=== PATIENT | female | born 1930 | race Caucasian/White ===

== ENCOUNTER 2018-11-22 15:33 | Inpatient (IN) ==
[2018-11-22] MEDS ORDERED: Ondansetron 4 MG/2 ML VIAL IVP ONE (15:54)
--- NOTE | 2018-11-22 16:03 | Emergency Department Note ---
Disposition Clinical Impression: Hydronephrosis, right Chronic kidney disease Qualifiers: Chronic kidney disease stage: stage 3 (moderate) Qualified Code(s): N18.3 - Ch ronic kidney disease, stage 3 (moderate) Abdominal pain Qualifiers: Abdominal location: right upper quadrant Qualified Code(s): R10.11 - Right upper quadrant pain UTI (urinary tract infection) Qualifiers: Urinary tract infection type: acute cystitis Hematuria presence: with hematuria Qualified Code(s): N30.01 - Acute cystitis with hematuria Disposition: Admitted As Inpatient Condition: Good Time of Disposition: 17:42 General Adult HPI - General Chief complaint: ED Abdominal Pain Stated complaint: N/V Abd Pain Time Seen by Provider: 11/22/18 15:37 Source: patient Limitations: no limitations Nursing Notes Reviewed: Yes Vital Signs Reviewed: Yes - History of Present Illness HPI Narrative: Female patient presenting to emergency department complaining of nausea and vomiting for the past 30 days. States it is worse at night. She did have a stent placed by Dr. Kannan silverman at this facility on Sunday. She came today to see urology for a follow-up and was sent here secondary to her nausea vomiting. Patient has a history of chronic kidney disease stage III. She was found to have hydronephrosis with no stone noted. They are unsure why she did have hydronephrosis. I did speak with Dr. Case who is the physician is [facility] office today. He had no specific concerns about the stent at this time but was concerned about the patient because she stated that she could not keep anything down at home. Patient reports that she has been having abdominal pain as well for the past 3 days. She denies any fevers. She denies any hematemesis or bilious emesis. She denies any shortness of breath or chest pain. Pain Scale: 7 - Related Data Home Medications Medication Instructions Recorded Confirmed Allopurinol [Zyloprim 100 MG] 100 mg PO DAILY 11/15/18 11/18/18 Aspirin [Adult Aspirin] 81 mg PO DAILY 11/15/18 11/18/18 Atorvastatin [Lipitor] 40 mg PO QPM 11/15/18 11/18/18 Carvedilol 12.5 mg PO BID 11/15/18 11/18/18 Cholecalciferol (Vitamin D3) 2,000 units PO DAILY 11/15/18 11/18/18 [Vitamin D3] Clopidogrel Bisulfate [Plavix] 75 mg PO DAILY 11/15/18 11/18/18 Duloxetine HCl [Cymbalta] 60 mg PO DAILY 11/15/18 11/18/18 Isosorbide MONOnitrate [Isosorbide 30 mg PO DAILY 11/15/18 11/18/18 Mononitrate ER] Meclizine HCl [Verticalm] 25 mg PO TID PRN 11/15/18 11/18/18 Oxybutynin [Ditropan] 5 mg PO BID 11/15/18 11/18/18 Pantoprazole Sodium [Protonix] 40 mg PO DAILY 11/15/18 11/18/18 Magnesium Oxide [Magnesium] 400 mg PO BID 11/18/18 11/18/18 Oxybutynin [Ditropan] 5 mg PO BID 11/22/18 11/22/18 Allergies Allergy/AdvReac Type Severity Reaction Status Date / Time baclofen Allergy Hives Verified 11/15/18 23:26 ciprofloxacin [From Cipro] Allergy Hives Verified 11/15/18 23:26 clindamycin Allergy Hives Verified 11/15/18 23:26 morphine Allergy Hives Verified 11/15/18 23:26 Penicillins [PCN] Allergy Hives Verified 11/15/18 23:26 Sulfa (Sulfonamide Allergy Hives Verified 11/15/18 23:26 Antibiotics) topiramate [From Topamax] Allergy Hives Verified 11/15/18 23:26 All systems ED: reviewed and negative except as stated. Review of Systems: As Per HPI Constitutional: Denies: fever Cardiovascular: Denies: chest pain Respiratory: Denies: cough, dyspnea Gastrointestinal: Reports: abdominal pain, nausea, vomiting. Denies: diarrhea, constipation, hematemesis, melena, hematochezia Genitourinary: Reports: hematuria. Denies: urgency, dysuria, frequency Musculoskeletal: Denies: back pain, neck pain Neurological: Reports: weakness. Denies: headache Past Medical History - Past Medical History Attestation: Yes The following information was validated with the patient. Source: patient Medical history: Reports: aortic aneurysm, arthritis, asthma, cancer, CHF, coronary artery disease, GERD, hyperlipidemia, hypertension, kidney stones, renal disease Surgical history: Reports: breast surgery, cancer surgery Psychiatric history: Reports: anxiety, depression - Social History Smoking Status: Never smoker Smokeless Tobacco Status: No Alcohol use: Reports: none Drug use: Reports: none Physical Exam - General Limitations: no limitations General appearance: alert, in distress (Holding a vomit bag.) - Head Head exam: atraumatic, normocephalic, normal inspection - Eye Eye exam: Present: normal appearance, PERRL, EOMI - ENT ENT exam: normal exam, normal oropharynx, mucous membranes moist - Neck Neck exam: Present: normal inspection, full ROM, trachea midline - Chest Chest inspection: Present: normal inspection, symmetric chest wall rise - Respiratory Respiratory exam: Present: normal lung sounds bilaterally. Absent: respiratory distress, accessory muscle use - Cardiovascular Cardiovascular exam: Present: regular rate, normal rhythm, normal heart sounds - Abdominal Exam Abdominal exam: Present: soft, tenderness (Right upper quadrant and epigastric region.), Pedro's sign. Absent: distention, guarding, rebound, rigidity, Rovsing's sign, tenderness at McBurney's Point - Extremities Exam Extremities exam: Present: normal inspection, full ROM, normal capillary refill. Absent: tenderness, pedal edema, calf tenderness - Neurological Exam Neurological exam: Present: alert, oriented X3 - Psychiatric Psychiatric exam: Present: normal affect, normal mood - Skin Skin exam: Present: warm, dry, intact, normal color. Absent: rash, cyanosis, diaphoresis Course Course Narrative: Female patient appears that she is not feeling well. Holding a vomit bag. Does have right upper quadrant tenderness on exam. Positive Pedro sign. Did have a recent stent placed for hydronephrosis with no overt reason for this. History of CKD. Patient is concerned that she has not been able to eat or drink since 3 days ago. We will get a basic lab workup on patient inclusive of a UA. She does report that she has been having some hematuria Tria but thinks this is secondary to her stent placed. She does report nausea vomiting is worse at night. We will provide patient with anti-medics as well as get basic lab workup and a CT of patient's abdomen. - Reevaluation(s) Reevaluation #1: Patient does have a urinary tract infection. We will go ahead and treat this at this time. She is not tachycardic and not febrile. I do not believe that the patient is currently septic. We will continue to treat her nausea and vomiting and have her admitted to the hospital. I did discuss this with the hospitalist. Ultrasound of her right upper quadrant is pending at this time. Time: 18:12 Vital Signs Temperature 98.4 F 11/22/18 15:36 Pulse Rate 87 11/22/18 15:36 Respiratory Rate 16 11/22/18 15:36 Blood Pressure 143/90 11/22/18 15:36 O2 Sat by Pulse Oximetry 97 11/22/18 15:36 Temperature 98.4 F 11/22/18 15:36 Pulse Rate 87 11/22/18 17:22 Respiratory Rate 14 11/22/18 17:22 Blood Pressure 195/73 11/22/18 17:22 O2 Sat by Pulse Oximetry 99 11/22/18 17:22 Oxygen Delivery Oxygen Delivery Room Air Medical Decision Making - Medical Records Medical records reviewed: Yes I reviewed the patient's medical records. - Lab Data Lab results reviewed: Yes I reviewed the patient's lab results. Result diagrams: 11/22/18 17:08 11/22/18 17:08 Lab Results 11/22/18 11/22/18 11/22/18 Range/Units 16:10 17:08 17:08 WBC 8.4 (4.3-11.1) K/mcL RBC 4.25 (3.82-4.97) M/mcL Hgb 12.0 (11.5-15.4) g/dL Hct 38.1 (35.3-44.9) % MCV 89.6 (83.0-100.0) fL MCH 28.2 (28.0-33.3) pg MCHC 31.5 L (31.6-35.5) g/dL RDW 17.1 H (11.5-14.5) % Plt Count 220 (140-400) K/mcL MPV 10.4 (9.4-12.4) fL Immature Gran % 0.4 (0-4) % Seg Neutrophils % 63.1 % Lymphocytes % 22.7 % Monocytes % 9.7 % Eosinophils % 3.5 % Basophils % 0.6 % Neutrophils # 5.3 (1.6-8.9) K/mcL Lymphocytes # 1.9 (0.6-4.6) K/mcL Monocytes # 0.8 (0.0-1.3) K/mcL Eosinophils # 0.3 (0.0-0.6) K/mcL Basophils # 0.1 (0.0-0.2) K/mcL Sodium 139 (136-145) mEq/L Potassium 4.0 (3.5-5.1) mEq/L Chloride 98 (98-107) mEq/L Carbon Dioxide 31 H (23-29) mEq/L BUN 22 (8-23) mg/dL Creatinine 1.64 H (0.60-1.20) mg/dL Est GFR ( Amer) 36 L (> 60) Est GFR (Non-Af Amer) 30 L (> 60) BUN/Creatinine Ratio 13 (6-26) Glucose 94 (70-105) mg/dL Calculated Osmolality 291 (280-300) Calcium 9.7 (8.6-10.3) mg/dL Total Bilirubin 0.7 (0.3-1.0) mg/dL Direct Bilirubin 0.2 (0.0-0.2) mg/dL Indirect Bilirubin 0.5 (0.0-1.2) mg/dL AST 16 (13-39) Units/L ALT 9 (7-52) Units/L Alkaline Phosphatase 99 (34-104) Units/L Serum Total Protein 7.0 (6.4-8.9) g/dL Albumin 4.1 (3.5-5.7) g/dL Globulin 2.9 (2.4-3.5) g/dL Albumin/Globulin Ratio 1.4 (1.1-2.2) Lipase 85 H (11-82) Units/L Ur Specimen Adequacy See below A Urine Color Brown (Yellow) Urine Clarity Cloudy A (Clear) Urine pH 5.5 (5.0-8.0) pH Units Ur Specific [place] 1.019 (1.010-1.025) Urine Protein >=300 H (Neg-Trace) mg/dL Urine Glucose (UA) Normal (Normal) mg/dL Urine Ketones 15 H (Negative) mg/dL Urine Blood Large H (Negative) Urine Nitrite Negative (Negative) Urine Bilirubin Moderate H (Negative) Urine Urobilinogen Normal (Normal) mg/dL Ur Leukocyte Esterase Moderate H (Negative) Ur Culture Indicated? YES A (NO) Specimen Rejected 11/22/18 Range/Units 17:50 WBC (4.3-11.1) K/mcL RBC (3.82-4.97) M/mcL Hgb (11.5-15.4) g/dL Hct (35.3-44.9) % MCV (83.0-100.0) fL MCH (28.0-33.3) pg MCHC (31.6-35.5) g/dL RDW (11.5-14.5) % Plt Count (140-400) K/mcL MPV (9.4-12.4) fL Immature Gran % (0-4) % Seg Neutrophils % % Lymphocytes % % Monocytes % % Eosinophils % % Basophils % % Neutrophils # (1.6-8.9) K/mcL Lymphocytes # (0.6-4.6) K/mcL Monocytes # (0.0-1.3) K/mcL Eosinophils # (0.0-0.6) K/mcL Basophils # (0.0-0.2) K/mcL Sodium (136-145) mEq/L Potassium (3.5-5.1) mEq/L Chloride (98-107) mEq/L Carbon Dioxide (23-29) mEq/L BUN (8-23) mg/dL Creatinine (0.60-1.20) mg/dL Est GFR ( Amer) (> 60) Est GFR (Non-Af Amer) (> 60) BUN/Creatinine Ratio (6-26) Glucose (70-105) mg/dL Calculated Osmolality (280-300) Calcium (8.6-10.3) mg/dL Total Bilirubin (0.3-1.0) mg/dL Direct Bilirubin (0.0-0.2) mg/dL Indirect Bilirubin (0.0-1.2) mg/dL AST (13-39) Units/L ALT (7-52) Units/L Alkaline Phosphatase (34-104) Units/L Serum Total Protein (6.4-8.9) g/dL Albumin (3.5-5.7) g/dL Globulin (2.4-3.5) g/dL Albumin/Globulin Ratio (1.1-2.2) Lipase (11-82) Units/L Ur Specimen Adequacy Urine Color (Yellow) Urine Clarity (Clear) Urine pH (5.0-8.0) pH Units Ur Specific [place] (1.010-1.025) Urine Protein (Neg-Trace) mg/dL Urine Glucose (UA) (Normal) mg/dL Urine Ketones (Negative) mg/dL Urine Blood (Negative) Urine Nitrite (Negative) Urine Bilirubin (Negative) Urine Urobilinogen (Normal) mg/dL Ur Leukocyte Esterase (Negative) Ur Culture Indicated? (NO) Specimen Rejected Hemolyzed - Radiology Data Radiology results reviewed: Yes I reviewed the patient's radiology results. Abdomen/Pelvis CT 11/22/18 15:55 IMPRESSION: 1. Mild inflammatory changes about the right kidney may be reactive or related to nephritis. Correlate with urinalysis. 2. Double-J right ureter stent appears unremarkable in position. 3. Mild right pelvicaliectasis. 4. Nonobstructing calculus left kidney. 5. Calcific atherosclerosis aorta. 6. Right pleural effusion may be reactive. 7. Moderate size hiatal hernia. 8. Probable hemorrhagic hyperdense lesion mid pole right kidney. D/ / Francois Smalls / Francois Smalls Interpreting Provider: Francois Smalls - EKG Data EKG #1 EKG attestation: Yes I reviewed and interpreted this EKG. EKG results narrative: Normal sinus rhythm at a rate 84. KS interval is 170. Your's duration is 93. QT is 383. QTC is 453. No signs of acute ischemia. Good R-wave progression. Does have some peaked T waves in lead V4. No signs of the review of your Brugada. No current previous EKG to compare to.
[2018-11-22] MEDS ORDERED: 0.9 % Sodium Chloride 500 ML IVC STA (16:47)
[2018-11-22 17:12] LABS: Bilirubin,Urine Moderate (Negative); Blood,Urine Large (Negative); Clarity,Urine Cloudy (Clear); Glucose,Urine (UA) Normal (Normal); Ketones,Urine 15 mg/dL (Negative); Leukocyte Esterase,Urine Moderate (Negative); Nitrite,Urine Negative (Negative); PH,Urine 5.5 pH Units (5.0-8.0); Protein,Urine >=300 mg/dL (Neg-Trace); Specific Gravity,Urine 1.019 (1.010-1.025); Urobilinogen,Urine Normal (Normal)
[2018-11-22 17:13] LABS: Color,Urine Brown (Yellow)
[2018-11-22] MEDS ORDERED: cefTRIAXone 1,000 MG in Water for inj. (sterile) 10 ML IVP ONE (17:29)
[2018-11-22 17:32] LABS: Basophils # 0.1 K/mcL (0.0-0.2); Basophils % 0.6 %; Eosinophils # 0.3 K/mcL (0.0-0.6); Eosinophils % 3.5 %; Hematocrit 38.1 % (35.3-44.9); Immature Granulocytes % 0.4 % (0-4); Lymphocytes # 1.9 K/mcL (0.6-4.6); Lymphocytes % 22.7 %; Mean Corpuscular HGB Conc 31.5 g/dL (31.6-35.5); Mean Corpuscular Hemoglobin 28.2 pg (28.0-33.3); Mean Corpuscular Volume 89.6 fL (83.0-100.0); Mean Platelet Volume 10.4 fL (9.4-12.4); Monocytes # 0.8 K/mcL (0.0-1.3); Monocytes % 9.7 %; Neutrophils # 5.3 K/mcL (1.6-8.9); Platelet Count 220 K/mcL (140-400); Red Blood Count 4.25 M/mcL (3.82-4.97); Red Cell Distribution Width 17.1 % (11.5-14.5); Segmented Neutrophils % 63.1 %; White Blood Count 8.4 K/mcL (4.3-11.1)
[2018-11-22 17:46] LABS: Albumin 4.1 g/dL (3.5-5.7); Albumin/Globulin Ratio 1.4 (1.1-2.2); Bilirubin,Direct 0.2 mg/dL (0.0-0.2); Bilirubin,Indirect 0.5 mg/dL (0.0-1.2); Bilirubin,Total 0.7 mg/dL (0.3-1.0); Calcium 9.7 mg/dL (8.6-10.3); Globulin 2.9 g/dL (2.4-3.5)
[2018-11-22] MEDS ORDERED: Naloxone 0.4 MG/ML INJ IVP PRN (17:55)
--- NOTE | 2018-11-22 18:25 | Emergency Department Note ---
Disposition Clinical Impression: Hydronephrosis, right Chronic kidney disease Qualifiers: Chronic kidney disease stage: stage 3 (moderate) Qualified Code(s): N18.3 - Ch ronic kidney disease, stage 3 (moderate) Abdominal pain Qualifiers: Abdominal location: right upper quadrant Qualified Code(s): R10.11 - Right upper quadrant pain UTI (urinary tract infection) Qualifiers: Urinary tract infection type: acute cystitis Hematuria presence: with hematuria Qualified Code(s): N30.01 - Acute cystitis with hematuria Disposition: Admitted As Inpatient Condition: Good Time of Disposition: 18:25 General Adult HPI - General Chief complaint: ED Abdominal Pain Stated complaint: N/V Abd Pain Time Seen by Provider: 11/22/18 15:37 Source: patient Limitations: no limitations - History of Present Illness Pain Scale: 7 - Related Data Home Medications Medication Instructions Recorded Confirmed Allopurinol [Zyloprim 100 MG] 100 mg PO DAILY 11/15/18 11/22/18 Aspirin [Adult Aspirin] 81 mg PO DAILY 11/15/18 11/22/18 Atorvastatin [Lipitor] 40 mg PO QPM 11/15/18 11/22/18 Carvedilol 12.5 mg PO BID 11/15/18 11/22/18 Cholecalciferol (Vitamin D3) 2,000 units PO DAILY 11/15/18 11/22/18 [Vitamin D3] Clopidogrel Bisulfate [Plavix] 75 mg PO DAILY 11/15/18 11/22/18 Duloxetine HCl [Cymbalta] 60 mg PO DAILY 11/15/18 11/22/18 Isosorbide MONOnitrate [Isosorbide 30 mg PO DAILY 11/15/18 11/22/18 Mononitrate ER] Meclizine HCl [Verticalm] 25 mg PO TID PRN 11/15/18 11/22/18 Oxybutynin [Ditropan] 5 mg PO BID 11/15/18 11/22/18 Pantoprazole Sodium [Protonix] 40 mg PO DAILY 11/15/18 11/22/18 Magnesium Oxide [Magnesium] 400 mg PO BID 11/18/18 11/22/18 Oxybutynin [Ditropan] 5 mg PO BID 11/22/18 11/22/18 Allergies Allergy/AdvReac Type Severity Reaction Status Date / Time baclofen Allergy Hives Verified 06/14/19 23:26 ciprofloxacin [From Cipro] Allergy Hives Verified 11/15/18 23:26 clindamycin Allergy Hives Verified 11/15/18 23:26 morphine Allergy Hives Verified 11/15/18 23:26 Penicillins [PCN] Allergy Hives Verified 11/15/18 23:26 Sulfa (Sulfonamide Allergy Hives Verified 11/15/18 23:26 Antibiotics) topiramate [From Topamax] Allergy Hives Verified 11/15/18 23:26 Constitutional: Denies: fever Cardiovascular: Denies: chest pain Respiratory: Denies: cough, dyspnea Gastrointestinal: Reports: abdominal pain, nausea, vomiting. Denies: diarrhea, constipation, hematemesis, melena, hematochezia Genitourinary: Reports: hematuria. Denies: urgency, dysuria, frequency Musculoskeletal: Denies: back pain, neck pain Neurological: Reports: weakness. Denies: headache Past Medical History - Past Medical History Medical history: Reports: aortic aneurysm, arthritis, asthma, cancer, CHF, coronary artery disease, GERD, hyperlipidemia, hypertension, kidney stones, renal disease Surgical history: Reports: breast surgery, cancer surgery Psychiatric history: Reports: anxiety, depression - Social History Smoking Status: Never smoker Smokeless Tobacco Status: No Alcohol use: Reports: none Drug use: Reports: none Physical Exam - General Limitations: no limitations General appearance: alert, in distress (Holding a vomit bag.) Course Vital Signs Temperature 98.4 F 11/22/18 15:36 Pulse Rate 87 11/22/18 15:36 Respiratory Rate 16 11/22/18 15:36 Blood Pressure 143/90 11/22/18 15:36 O2 Sat by Pulse Oximetry 97 11/22/18 15:36 Temperature 98.4 F 11/22/18 15:36 Pulse Rate 87 11/22/18 17:22 Respiratory Rate 14 11/22/18 17:22 Blood Pressure 195/73 11/22/18 17:22 O2 Sat by Pulse Oximetry 99 11/22/18 17:22 Oxygen Delivery Oxygen Delivery Room Air Medical Decision Making - Lab Data Result diagrams: 11/22/18 17:08 11/22/18 17:08 Lab Results 11/22/18 11/22/18 11/22/18 Range/Units 16:10 17:08 17:08 WBC 8.4 (4.3-11.1) K/mcL RBC 4.25 (3.82-4.97) M/mcL Hgb 12.0 (11.5-15.4) g/dL Hct 38.1 (35.3-44.9) % MCV 89.6 (83.0-100.0) fL MCH 28.2 (28.0-33.3) pg MCHC 31.5 L (31.6-35.5) g/dL RDW 17.1 H (11.5-14.5) % Plt Count 220 (140-400) K/mcL MPV 10.4 (9.4-12.4) fL Immature Gran % 0.4 (0-4) % Seg Neutrophils % 63.1 % Lymphocytes % 22.7 % Monocytes % 9.7 % Eosinophils % 3.5 % Basophils % 0.6 % Neutrophils # 5.3 (1.6-8.9) K/mcL Lymphocytes # 1.9 (0.6-4.6) K/mcL Monocytes # 0.8 (0.0-1.3) K/mcL Eosinophils # 0.3 (0.0-0.6) K/mcL Basophils # 0.1 (0.0-0.2) K/mcL Sodium 139 (136-145) mEq/L Potassium 4.0 (3.5-5.1) mEq/L Chloride 98 (98-107) mEq/L Carbon Dioxide 31 H (23-29) mEq/L BUN 22 (8-23) mg/dL Creatinine 1.64 H (0.60-1.20) mg/dL Est GFR ( Amer) 36 L (> 60) Est GFR (Non-Af Amer) 30 L (> 60) BUN/Creatinine Ratio 13 (6-26) Glucose 94 (70-105) mg/dL Calculated Osmolality 291 (280-300) Calcium 9.7 (8.6-10.3) mg/dL Total Bilirubin 0.7 (0.3-1.0) mg/dL Direct Bilirubin 0.2 (0.0-0.2) mg/dL Indirect Bilirubin 0.5 (0.0-1.2) mg/dL AST 16 (13-39) Units/L ALT 9 (7-52) Units/L Alkaline Phosphatase 99 (34-104) Units/L Serum Total Protein 7.0 (6.4-8.9) g/dL Albumin 4.1 (3.5-5.7) g/dL Globulin 2.9 (2.4-3.5) g/dL Albumin/Globulin Ratio 1.4 (1.1-2.2) Lipase 85 H (11-82) Units/L Ur Specimen Adequacy See below A Urine Color Brown (Yellow) Urine Clarity Cloudy A (Clear) Urine pH 5.5 (5.0-8.0) pH Units Ur Specific [place] 1.019 (1.010-1.025) Urine Protein >=300 H (Neg-Trace) mg/dL Urine Glucose (UA) Normal (Normal) mg/dL Urine Ketones 15 H (Negative) mg/dL Urine Blood Large H (Negative) Urine Nitrite Negative (Negative) Urine Bilirubin Moderate H (Negative) Urine Urobilinogen Normal (Normal) mg/dL Ur Leukocyte Esterase Moderate H (Negative) Ur Culture Indicated? YES A (NO) Attestation Statement - Attestation Attestation: I reviewed the residents documentation and agree with the residents assessment and plan of care. I have personally had face to face time with the patient. (Brief History, Brief Exam, and MDM) I personally supervised and was present for the luciano/critical portions of the following procedures completed by the resident: EKG 87 year old female presents to the ED with complaints of abdominal pain and NVD in the epigastirc area and RUQ and otherwise most recenlty had urethral stents per urology for stones. from urology attempted to do direct admission from his office but was unsuccessful. Sylwia appears to have neprhitis and a hemmorhgaic kdiney cyst. Urology is othrewise aware and we will admit to [facility]. ROcephin started as her urine is infected
--- NOTE | 2018-11-22 18:32 | Internal Med History&Physical ---
Date of Encounter: 11/22/18 Time of Encounter: 18:00 Internal Medicine - H&P: HPI Chief complaint: Nausea and vomiting for 3 days and abdominal pain History of present illness: Ms. Dee is a 87 year old female with pmh of CKD stage 3, kidney stones s/p recent right sided ureteral stent placement, CAD presenting with complaints of nausea, vomiting abdominal pain that has been going on for about a week. Patient says she had nausea and vomiting prior to her stent placement but nothing to this severity. She says since sunday, she has had multiple episodes of nausea a nd vomiting and has been unable to keep anything down. She also complains of generalized abdominal pain, mor pronounced in the right upper quadrant. She denies any fevers, chills or diarrhea. She admits to some relief with tylenol at home. She was at her urology appointment today and noted to be nauseous and vomiting and was sent to the ER. In the ER, a CT abdomen was done showing mild inflammatory changes around the right kidney and a right ureter stent. She was started on fluids and ceftriaxone and is being admitted for further management Past Med Surg Social Fam HX - Past Medical History Medical history: aortic aneurysm, arthritis, asthma, cancer, CHF, coronary artery disease, GERD, hyperlipidemia, hypertension, kidney stones, renal disease Additional medical history: gout. lumbar stenosis Psychiatric history: anxiety, depression - Past Surgical History Surgical History: breast surgery, cancer surgery Additional surgical history: Stent 2018, BL knee replacement, Rectocele, - Social History Smoking Status: Never smoker Smokeless Tobacco Status: No Alcohol use: none Drug use: none - Family History Mother Living Status: Hx Family Cardiac Disorders: Yes (HTN) Father Living Status: Hx Family Cancer: Yes (Lung) - Additional Family History Additional family history: Family history reviewed and non contributory Internal Medicine - H&P: Meds Allopurinol [Zyloprim 100 MG] 100 mg PO DAILY 11/15/18 [History] Aspirin [Adult Aspirin] 81 mg PO DAILY 11/15/18 [History] Atorvastatin [Lipitor] 40 mg PO QPM 11/15/18 [History] Carvedilol 12.5 mg PO BID 11/15/18 [History] Cholecalciferol (Vitamin D3) [Vitamin D3] 2,000 units PO DAILY 11/15/18 [History] Clopidogrel Bisulfate [Plavix] 75 mg PO DAILY 11/15/18 [History] Duloxetine HCl [Cymbalta] 60 mg PO DAILY 11/15/18 [History] Isosorbide MONOnitrate [Isosorbide Mononitrate ER] 30 mg PO DAILY 11/15/18 [History] Meclizine HCl [Verticalm] 25 mg PO TID PRN 11/15/18 [History] Oxybutynin [Ditropan] 5 mg PO BID 11/15/18 [History] Pantoprazole Sodium [Protonix] 40 mg PO DAILY 11/15/18 [History] Magnesium Oxide [Magnesium] 400 mg PO BID 11/18/18 [History] Oxybutynin [Ditropan] 5 mg PO BID 11/22/18 [History] Allergy/AdvReac Type Severity Reaction Status Date / Time baclofen Allergy Hives Verified 11/15/18 23:26 ciprofloxacin [From Cipro] Allergy Hives Verified 11/15/18 23:26 clindamycin Allergy Hives Verified 11/15/18 23:26 morphine Allergy Hives Verified 11/15/18 23:26 Penicillins [PCN] Allergy Hives Verified 11/15/18 23:26 Sulfa (Sulfonamide Allergy Hives Verified 11/15/18 23:26 Antibiotics) topiramate [From Topamax] Allergy Hives Verified 11/15/18 23:26 All Systems PM: A 10-system review of systems was performed and is negative for pertinent findings except as documented above in the HPI. - Constitutional Constitutional: no chills, no fever(s), no night sweats - EENT Eyes: no change in vision, no discharge, no pain, no photophobia Ears: no ear discharge, no ear pain, no tinnitus Nose, mouth and throat: no dysphagia, no nasal discharge, no neck pain, no sore throat - Cardiovascular Cardiovascular ROS IM: no chest pain, no diaphoresis, no dyspnea, no lightheadedness, no palpitations, no syncope - Respiratory Respiratory: no cough, no dyspnea, no wheezing, no excessive phlegm production - Gastrointestinal Gastrointestinal: abdominal pain, nausea, vomiting, no diarrhea, no hematemesis, no hematochezia, no melena - Genitourinary Genitourinary: no change in urinary stream, no dysuria, no flank pain, no hematuria - Musculoskeletal Musculoskeletal ROS IM: no numbness, no tingling - Integumentary Integumentary IM: no rash, no unusual bruising - Neurological Neurological ROS: no confusion, no convulsions, no focal weakness, no numbness, no tingling, no tremor(s) - Hematologic/Lymphatic Hematologic/Lymphatic: no easy bruising - Constitutional Vitals: Temp Pulse Resp BP Pulse Ox 98.4 F 87 14 195/73 99 11/22/18 15:36 11/22/18 17:22 11/22/18 17:22 11/22/18 17:22 11/22/18 17:22 Exam: RUQ pain NAD - Head Head exam: Present: atraumatic, normocephalic - Eye Eye exam: Present: PERRL, conjuntiva pink, sclera anicteric Pupils: Present: PERRL - Neck Neck exam general surgery: Present: supple, trachea midline. Absent: lymphade nopathy - Respiratory Respiratory exam: Present: CTAB. Absent: accessory muscle use, rales, rhonchi, wheezes - Cardiovascular Cardiovascular exam: Present: RRR, +S1, +S2. Absent: diastolic murmur, gallop, rubs, systolic murmur - GI/Abdominal GI/Abdominal exam: Present: normal bowel sounds, soft, no peritoneal signs. Absent: distended, tenderness - Extremities Exam Extremities exam: Present: warm, radial pulses palpable and symmetrical. Absent: calf tenderness, cyanotic, pedal edema - Neurological Exam Neurological exam: Present: CN II-XII intact, oriented X3, no focal deficits. Absent: pronater drift, facial droop, speech deficit - Skin Skin exam: Present: dry, intact Internal Med - H&P Results - Labs CBC & Chem 7: 11/22/18 17:08 11/22/18 17:08 Labs: Short CBC 11/22/18 Range/Units 17:08 WBC 8.4 (4.3-11.1) K/mcL Hgb 12.0 (11.5-15.4) g/dL Hct 38.1 (35.3-44.9) % Plt Count 220 (140-400) K/mcL Neutrophils # 5.3 (1.6-8.9) K/mcL BMP 11/22/18 17:08 Sodium 139 Potassium 4.0 Chloride 98 Carbon Dioxide 31 H BUN 22 Creatinine 1.64 H Glucose 94 Calcium 9.7 Liver Function 11/22/18 Range/Units 17:08 Total Bilirubin 0.7 (0.3-1.0) mg/dL Direct Bilirubin 0.2 (0.0-0.2) mg/dL AST 16 (13-39) Units/L ALT 9 (7-52) Units/L Alkaline Phosphatase 99 (34-104) Units/L Albumin 4.1 (3.5-5.7) g/dL Urine 11/22/18 Range/Units 16:10 Urine Color Brown (Yellow) Urine Clarity Cloudy A (Clear) Urine pH 5.5 (5.0-8.0) pH Units Ur Specific [place] 1.019 (1.010-1.025) Urine Protein >=300 H (Neg-Trace) mg/dL Urine Glucose (UA) Normal (Normal) mg/dL - Impressions ITS Impressions Abdomen/Pelvis CT 11/22/18 15:55 IMPRESSION: 1. Mild inflammatory changes about the right kidney may be reactive or related to nephritis. Correlate with urinalysis. 2. Double-J right ureter stent appears unremarkable in position. 3. Mild right pelvicaliectasis. 4. Nonobstructing calculus left kidney. 5. Calcific atherosclerosis aorta. 6. Right pleural effusion may be reactive. 7. Moderate size hiatal hernia. 8. Probable hemorrhagic hyperdense lesion mid pole right kidney. D/ / Francois Smalls / Francois Smalls Interpreting Provider: Francois Smalls - Assessment and Plan (1) UTI (urinary tract infection) Current Visit: Yes Status: Acute Assessment and plan: Pt comes in with nausea and vomiting with urinalysis showing positive leukocyte esterase s/p recent ureteral stent Start on ceftriaxone. Obtain urine cultures. IV fluids. Zofran PRN Qualifiers: Urinary tract infection type: acute cystitis Hematuria presence: with hematuria Qualified Code(s): N30.01 - Acute cystitis with hematuria (2) Abdominal pain Current Visit: Yes Status: Acute Assessment and plan: Possibly related to UTI but pt describes a RUQ pain. Will obtain gall bladder ultrasound LFTs WNL Qualifiers: Abdominal location: right upper quadrant Qualified Code(s): R10.11 - Right upper quadrant pain (3) Chronic kidney disease Current Visit: Yes Status: Acute Assessment and plan: CKD stage 3. At baseline. Continue IV fluids Qualifiers: Chronic kidney disease stage: stage 3 (moderate) Qualified Code(s): N18.3 - Chronic kidney disease, stage 3 (moderate) (4) Hypertension Current Visit: Yes Status: Chronic Assessment and plan: Resume home meds Qualifiers: Hypertension type: unspecified Qualified Code(s): I10 - Essential (primary) hypertension (5) Coronary artery disease Current Visit: Yes Status: Acute Assessment and plan: Continue aspirin and plavix Qualifiers: Qualified Code(s): I25.10 - Atherosclerotic heart disease of [place] coronary artery without angina pectoris (6) DVT prophylaxis Current Visit: Yes Status: Acute Assessment and plan: Heparin sc - Time Spent With Patient Total time spent is greater than 50% in coordination of care (as documented) at patient's floor/unit and/or counseling patient:
[2018-11-22] MEDS: 0.9 % Sodium Chloride 1,000 ML IVC SCH (21:22)
[2018-11-22] MEDS: *HR* Heparin 5,000 UNIT/ML VIAL SQ SCH (21:25)
[2018-11-22] MEDS ORDERED: *HR* OxyCODONE Immed Rel 5 MG TABLET PO ONE (23:05)
[2018-11-23] MEDS: Ondansetron 4 MG/2 ML VIAL IVP PRN ×3 (01:44→16:51)
[2018-11-23] MEDS ORDERED: *HR* OxyCODONE Immed Rel 5 MG TABLET PO ONE (04:11)
[2018-11-23] MEDS: *HR* Heparin 5,000 UNIT/ML VIAL SQ SCH ×2 (05:41→19:05)
[2018-11-23 06:33] LABS: Basophils % 0.5 %; Eosinophils # 0.4 K/mcL (0.0-0.6); Eosinophils % 5.1 %; Hematocrit 33.8 % (35.3-44.9); Hemoglobin 10.8 g/dL (11.5-15.4); Immature Granulocytes % 0.3 % (0-4); Lymphocytes # 1.4 K/mcL (0.6-4.6); Lymphocytes % 18.3 %; Mean Corpuscular Hemoglobin 28.2 pg (28.0-33.3); Mean Corpuscular Volume 88.3 fL (83.0-100.0); Mean Platelet Volume 11.1 fL (9.4-12.4); Monocytes # 0.7 K/mcL (0.0-1.3); Monocytes % 8.6 %; Neutrophils # 5.3 K/mcL (1.6-8.9); Platelet Count 189 K/mcL (140-400); Red Blood Count 3.83 M/mcL (3.82-4.97); Red Cell Distribution Width 17.2 % (11.5-14.5); Segmented Neutrophils % 67.2 %; White Blood Count 7.9 K/mcL (4.3-11.1)
[2018-11-23 06:53] LABS: Calcium 8.9 mg/dL (8.6-10.3); Phosphorous 3.9 mg/dL (2.7-4.5); Potassium 3.9 mEq/L (3.5-5.1)
[2018-11-23] MEDS: 0.9 % Sodium Chloride 1,000 ML IVC SCH ×2 (07:22→16:51)
--- NOTE | 2018-11-23 08:55 | Internal Med Progress Note ---
Hospitalist Progress Note - Encounter Date of Encounter: 11/23/18 Time of Encounter: 08:50 - Subjective Interval History: No acute events overnight - Exam Vitals: Temp Pulse Resp BP Pulse Ox 98.5 F 87 15 184/84 95 11/23/18 06:56 11/23/18 06:56 11/23/18 06:56 11/23/18 06:56 11/23/18 06:56 Exam: General appearance: Present: A&O X 3, no acute distress Head exam: Present: normocephalic Respiratory exam: Diffuse midepigastric pain Cardiovascular exam: Present: RRR, +S1, +S2. Absent: diastolic murmur, gallop, rubs, systolic murmur GI/Abdominal exam: Soft, NT, ND, +BS Extremities exam: Absent: pedal edema Neurological exam: Present: alert, oriented X3, no focal deficits. Absent: altered - Assessment and Plan (1) UTI (urinary tract infection) Current Visit: Yes Status: Acute Assessment and Plan: Pt comes in with nausea and vomiting with urinalysis showing positive leukocyte esterase s/p recent ureteral stent Start on ceftriaxone. Obtain urine cultures. IV fluids. Zofran PRN Unknown whether UTI is related to recent stent. Urine cultures pending (2) Abdominal pain Current Visit: Yes Status: Acute Assessment and Plan: Possibly related to UTI but pt describes a RUQ pain nad mid epigastric pain Ultrasound of gall bladder and pancreas WNL. CT abdomen showed moderate sized hiatal hernia Will consult GI for possible endoscopy (3) Chronic kidney disease Current Visit: Yes Status: Acute Assessment and Plan: CKD stage 3. At baseline. Continue IV fluids (4) Hypertension Current Visit: Yes Status: Chronic Assessment and Plan: Resume home meds (5) Coronary artery disease Current Visit: Yes Status: Acute Assessment and Plan: Continue aspirin and plavix (6) DVT prophylaxis Current Visit: Yes Status: Acute Assessment and Plan: Heparin sc - Time Spent with Patient Total time spent is greater than 50% in coordination of care (as documented) at patient's floor/unit and/or counseling patient: Internal Medicine: Result - Labs CBC & Chem 7: 11/23/18 10:36 11/23/18 05:56 Labs: Short CBC 11/22/18 11/23/18 Range/Units 17:08 05:56 WBC 8.4 7.9 (4.3-11.1) K/mcL Hgb 12.0 10.8 L (11.5-15.4) g/dL Hct 38.1 33.8 L (35.3-44.9) % Plt Count 220 189 (140-400) K/mcL Neutrophils # 5.3 5.3 (1.6-8.9) K/mcL BMP 11/22/18 11/23/18 17:08 05:56 Sodium 139 141 Potassium 4.0 3.9 Chloride 98 104 Carbon Dioxide 31 H 28 BUN 22 20 Creatinine 1.64 H 1.47 H Glucose 94 103 Calcium 9.7 8.9 Liver Function 11/22/18 Range/Units 17:08 Total Bilirubin 0.7 (0.3-1.0) mg/dL Direct Bilirubin 0.2 (0.0-0.2) mg/dL AST 16 (13-39) Units/L ALT 9 (7-52) Units/L Alkaline Phosphatase 99 (34-104) Units/L Albumin 4.1 (3.5-5.7) g/dL Urine 11/22/18 Range/Units 16:10 Urine Color Brown (Yellow) Urine Clarity Cloudy A (Clear) Urine pH 5.5 (5.0-8.0) pH Units Ur Specific [place] 1.019 (1.010-1.025) Urine Protein >=300 H (Neg-Trace) mg/dL Urine Glucose (UA) Normal (Normal) mg/dL - Impressions Impressions Abdomen/Pelvis CT 11/22/18 15:55 IMPRESSION: 1. Mild inflammatory changes about the right kidney may be reactive or related to nephritis. Correlate with urinalysis. 2. Double-J right ureter stent appears unremarkable in position. 3. Mild right pelvicaliectasis. 4. Nonobstructing calculus left kidney. 5. Calcific atherosclerosis aorta. 6. Right pleural effusion may be reactive. 7. Moderate size hiatal hernia. 8. Probable hemorrhagic hyperdense lesion mid pole right kidney. D/ / Francois Smalls / Francois Smalls Interpreting Provider: Francois Smalls Abdomen Ultrasound 11/22/18 17:10 IMPRESSION: 1. Sludge in the lumen of the gallbladder with no evidence of acute cholecystitis. 2. Solid-appearing lesion in the right hepatic lobe. Recommend follow-up evaluation with liver MRI with and without contrast. 3. Cysts in the kidney. 4. Mild ascites in the right abdomen. D/ / Jigar Mancini MD / Jigar Mancini MD Interpreting Provider: Jigar Mancini MD Consult Discharge Plan - Plan Referrals: Bi Christianson DO [Primary Care Provider] - (1) UTI (urinary tract infection) Qualifiers: Urinary tract infection type: acute cystitis Hematuria presence: with hematu urmila Qualified Code(s): N30.01 - Acute cystitis with hematuria (2) Abdominal pain Qualifiers: Abdominal location: right upper quadrant Qualified Code(s): R10.11 - Right upper quadrant pain (3) Chronic kidney disease Qualifiers: Chronic kidney disease stage: stage 3 (moderate) Qualified Code(s): N18.3 - Chronic kidney disease, stage 3 (moderate) (4) Hypertension Qualifiers: Hypertension type: unspecified Qualified Code(s): I10 - Essential (primary) hypertension (5) Coronary artery disease Qualifiers: Qualified Code(s): I25.10 - Atherosclerotic heart disease of [place] coronary artery without angina pectoris
[2018-11-23] MEDS: Cholecalciferol (D-3) 1,000 UNIT TABLET PO SCH (09:33)
[2018-11-23] MEDS: amLODIPine 5 MG TABLET PO SCH ×2 (09:34→16:46)
[2018-11-23] MEDS: Isosorbide MONOnitrate (24 HR) 30 MG TAB.ER.24H PO SCH ×2 (09:34→16:46)
[2018-11-23] MEDS: Aspirin Enteric Coated 81 MG Tablet PO SCH ×2 (09:34→16:46)
[2018-11-23] MEDS: cefTRIAXone 1,000 MG in Water for inj. (sterile) 10 ML IVP SCH (09:35)
--- NOTE | 2018-11-23 09:39 | Urology Progress Note ---
Date of Encounter: 11/23/18 Time of Encounter: 09:37 - Assessment and Plan (1) Abdominal pain Current Visit: Yes Status: Acute Assessment and plan: Unclear etiology. Patient is status post right diagnostic ureteroscopy with dilation of stricture and placement of stent on 11/17/2018. CT scan shows no urinary obstruction/hydronephrosis. UA suggestive of infection with culture pending. Patient's pain is mid abdominal is not lateralized to the right side. Plan: No indications for urologic surgical interventions at this time. Culture specific antibiotics as per primary service. Qualifiers: Abdominal location: right upper quadrant Qualified Code(s): R10.11 - Right upper quadrant pain (2) UTI (urinary tract infection) Current Visit: Yes Status: Acute Assessment and plan: UA suggestive of potential infection. Culture is pending. Right-sided urologic stent in good position without hydronephrosis. Plan: Culture specific antibiotics as per primary service. Qualifiers: Urinary tract infection type: acute cystitis Hematuria presence: with hematuria Qualified Code(s): N30.01 - Acute cystitis with hematuria Progress Note Narrative: Ms. Dee is a 87 year old female with pmh of CKD stage 3, kidney stones s/p recent right sided ureteral stent placement, CAD presenting with complaints of nausea, vomiting abdominal pain that has been going on for about a week. Patient says she had nausea and vomiting prior to her stent placement but nothing to this severity. She says since sunday, she has had multiple episodes of nausea and vomiting and has been unable to keep anything down. She also complains of generalized abdominal pain, mor pronounced in the right upper quadrant. She denies any fevers, chills or diarrhea. She admits to some relief with tylenol at home. She was at her urology appointment today and noted to be nauseous and vomiting and was sent to the ER. In the ER, a CT abdomen was done showing mild inflammatory changes around the right kidney and a right ureter stent. She was started on fluids and ceftriaxone and is being admitted for further management Objective Initial Vital Signs Temp Pulse Resp BP Pulse Ox 98.4 F 87 16 143/90 97 11/22/18 15:36 11/22/18 15:36 11/22/18 15:36 11/22/18 15:36 11/22/18 15:36 - General physical appearance Present: well nourished, no distress, moderate pain - Respiratory Present: normal respiratory effort - Abdomen Present: distended. Absent: rigid - Integumentary Present: no rash, no growths - Musculoskeletal Present: normal posture - Psychiatric Present: oriented to time, oriented to person, oriented to place - Labs 11/23/18 05:56 11/23/18 05:56 Diabetes panel 11/22/18 11/23/18 Range/Units 17:08 05:56 Sodium 139 141 (136-145) mEq/L Potassium 4.0 3.9 (3.5-5.1) mEq/L Chloride 98 104 (98-107) mEq/L Carbon Dioxide 31 H 28 (23-29) mEq/L BUN 22 20 (8-23) mg/dL Creatinine 1.64 H 1.47 H (0.60-1.20) mg/dL Glucose 94 103 (70-105) mg/dL Calcium 9.7 8.9 (8.6-10.3) mg/dL AST 16 (13-39) Units/L ALT 9 (7-52) Units/L Alkaline Phosphatase 99 (34-104) Units/L Albumin 4.1 (3.5-5.7) g/dL Calcium panel 11/22/18 11/23/18 Range/Units 17:08 05:56 Calcium 9.7 8.9 (8.6-10.3) mg/dL Phosphorus 3.9 (2.7-4.5) mg/dL Albumin 4.1 (3.5-5.7) g/dL Pituitary panel 11/22/18 11/23/18 Range/Units 17:08 05:56 Sodium 139 141 (136-145) mEq/L Potassium 4.0 3.9 (3.5-5.1) mEq/L Chloride 98 104 (98-107) mEq/L Carbon Dioxide 31 H 28 (23-29) mEq/L BUN 22 20 (8-23) mg/dL Creatinine 1.64 H 1.47 H (0.60-1.20) mg/dL Glucose 94 103 (70-105) mg/dL Calcium 9.7 8.9 (8.6-10.3) mg/dL Adrenal panel 11/22/18 11/23/18 Range/Units 17:08 05:56 Sodium 139 141 (136-145) mEq/L Potassium 4.0 3.9 (3.5-5.1) mEq/L Chloride 98 104 (98-107) mEq/L Carbon Dioxide 31 H 28 (23-29) mEq/L BUN 22 20 (8-23) mg/dL Creatinine 1.64 H 1.47 H (0.60-1.20) mg/dL Glucose 94 103 (70-105) mg/dL Calcium 9.7 8.9 (8.6-10.3) mg/dL Total Bilirubin 0.7 (0.3-1.0) mg/dL AST 16 (13-39) Units/L ALT 9 (7-52) Units/L Alkaline Phosphatase 99 (34-104) Units/L Albumin 4.1 (3.5-5.7) g/dL - Imaging CT scan - abdomen: image reviewed CT scan - pelvis: image reviewed Consult Discharge Plan - Plan Referrals: Bi Christianson DO [Primary Care Provider] -
[2018-11-23] MEDS: *HR* Promethazine 25 MG/ML VIAL IVP PRN ×3 (09:46→22:45)
[2018-11-23 10:53] LABS: Hemoglobin 11.6 g/dL (11.5-15.4)
--- NOTE | 2018-11-23 14:06 | Electrocardiograph Report ---
[address] [address] Test Date: 2018-11-22 Pat Name: Amara Dee Department: [id number] Room: 3A Gender: F Director Of Infection Control: : 1930 Requested By: Janie Vidal Order Number: [id number] Reading MD: Pool Garibay Measurements Intervals [place] Rate: 84 P: 66 UT: 170 QRS: -52 QRSD: 93 T: 37 QT: 383 QTc: 453 Interpretive Statements Sinus rhythm Left anterior fascicular block Left ventricular hypertrophy Electronically Signed On 11-23-2018 14:04:39 EDT by Pool Garibay
[2018-11-23] MEDS ORDERED: Metoclopramide 10 MG/2 ML VIAL IVP SCH (18:00)
[2018-11-23] MEDS: Metoclopramide 10 MG/2 ML VIAL IVP SCH (23:44)
[2018-11-24] MEDS ORDERED: Metoclopramide 10 MG/2 ML VIAL IVP SCH
[2018-11-24] MEDS: 0.9 % Sodium Chloride 1,000 ML IVC SCH ×2 (02:41→12:34)
[2018-11-24 05:09] LABS: Basophils % 0.5 %; Eosinophils # 0.1 K/mcL (0.0-0.6); Eosinophils % 1.6 %; Hematocrit 33.3 % (35.3-44.9); Hemoglobin 10.9 g/dL (11.5-15.4); Immature Granulocytes % 0.5 % (0-4); Lymphocytes # 2.1 K/mcL (0.6-4.6); Lymphocytes % 24.3 %; Mean Corpuscular HGB Conc 32.7 g/dL (31.6-35.5); Mean Corpuscular Hemoglobin 28.5 pg (28.0-33.3); Mean Corpuscular Volume 86.9 fL (83.0-100.0); Mean Platelet Volume 10.8 fL (9.4-12.4); Monocytes # 0.8 K/mcL (0.0-1.3); Monocytes % 9.4 %; Neutrophils # 5.6 K/mcL (1.6-8.9); Platelet Count 210 K/mcL (140-400); Red Blood Count 3.83 M/mcL (3.82-4.97); Red Cell Distribution Width 17.2 % (11.5-14.5); Segmented Neutrophils % 63.7 %; White Blood Count 8.7 K/mcL (4.3-11.1)
[2018-11-24 05:20] LABS: Calcium 8.6 mg/dL (8.6-10.3); Phosphorous 4.1 mg/dL (2.7-4.5)
[2018-11-24] MEDS: *HR* Heparin 5,000 UNIT/ML VIAL SQ SCH ×2 (05:20→20:57)
[2018-11-24] MEDS: Metoclopramide 10 MG/2 ML VIAL IVP SCH ×4 (05:20→23:27)
--- NOTE | 2018-11-24 08:32 | Internal Med Progress Note ---
Hospitalist Progress Note - Encounter Date of Encounter: 11/24/18 Time of Encounter: 08:30 - Subjective Interval History: No acute events overnight - Exam Vitals: Temp Pulse Resp BP Pulse Ox 98.2 F 86 14 123/71 96 11/24/18 06:29 11/24/18 06:29 11/24/18 06:29 11/24/18 06:29 11/24/18 06:29 Exam: General appearance: Present: A&O X 3, no acute distress Head exam: Present: normocephalic Respiratory exam: Diffuse midepigastric pain Cardiovascular exam: Present: RRR, +S1, +S2. Absent: diastolic murmur, gallop, rubs, systolic murmur GI/Abdominal exam: Soft, NT, ND, +BS Extremities exam: Absent: pedal edema Neurological exam: Present: alert, oriented X3, no focal deficits. Absent: altered - Assessment and Plan (1) UTI (urinary tract infection) Current Visit: Yes Status: Acute Assessment and Plan: Pt comes in with nausea and vomiting with urinalysis showing positive leukocyte esterase s/p recent ureteral stent Start on ceftriaxone. Obtain urine cultures. IV fluids. Zofran PRN UTI possibly due to/ associated with recent stent. Urine cultures pending (2) Abdominal pain Current Visit: Yes Status: Acute Assessment and Plan: Possibly related to UTI but pt describes a RUQ pain nad mid epigastric pain Ultrasound of gall bladder and pancreas WNL. CT abdomen showed moderate sized hiatal hernia GI plan for endoscopy in am (3) Chronic kidney disease Current Visit: Yes Status: Acute Assessment and Plan: CKD stage 3. At baseline. Continue IV fluids (4) Hypertension Current Visit: Yes Status: Chronic Assessment and Plan: Resume home meds (5) Coronary artery disease Current Visit: Yes Status: Acute Assessment and Plan: Continue aspirin and plavix (6) DVT prophylaxis Current Visit: Yes Status: Acute Assessment and Plan: Heparin sc - Time Spent with Patient Total time spent is greater than 50% in coordination of care (as documented) at patient's floor/unit and/or counseling patient: Internal Medicine: Result - Labs CBC & Chem 7: 11/24/18 04:46 11/24/18 04:46 Labs: Short CBC 11/23/18 11/24/18 Range/Units 10:36 04:46 WBC 8.7 (4.3-11.1) K/mcL Hgb 11.6 10.9 L (11.5-15.4) g/dL Hct 37.0 33.3 L (35.3-44.9) % Plt Count 210 (140-400) K/mcL Neutrophils # 5.6 (1.6-8.9) K/mcL [facility] 11/24/18 04:46 Sodium 142 Potassium 4.0 Chloride 103 Carbon Dioxide 30 H BUN 20 Creatinine 1.42 H Glucose 104 Calcium 8.6 Consult Discharge Plan - Plan Referrals: Bi Christianson DO [Primary Care Provider] - (1) UTI (urinary tract infection) Qualifiers: Urinary tract infection type: acute cystitis Hematuria presence: with hematuria Qualified Code(s): N30.01 - Acute cystitis with hematuria (2) Abdominal pain Qualifiers: Abdominal location: epigastric Qualified Code(s): R10.13 - Epigastric pain (3) Chronic kidney disease Qualifiers: Chronic kidney disease stage: stage 3 (moderate) Qualified Code(s): N18.3 - Chronic kidney disease, stage 3 (moderate) (4) Hypertension Qualifiers: Hypertension type: unspecified Qualified Code(s): I10 - Essential (primary) hypertension (5) Coronary artery disease Qualifiers: Qualified Code(s): I25.10 - Atherosclerotic heart disease of [place] coronary artery without angina pectoris
[2018-11-24] MEDS: cefTRIAXone 1,000 MG in Water for inj. (sterile) 10 ML IVP SCH (08:48)
[2018-11-24] MEDS: amLODIPine 5 MG TABLET PO SCH (08:49)
[2018-11-24] MEDS: Isosorbide MONOnitrate (24 HR) 30 MG TAB.ER.24H PO SCH (08:49)
[2018-11-24] MEDS: Aspirin Enteric Coated 81 MG Tablet PO SCH (08:49)
[2018-11-24] MEDS: Cholecalciferol (D-3) 1,000 UNIT TABLET PO SCH (08:49)
--- NOTE | 2018-11-24 08:57 | Urology Progress Note ---
Date of Encounter: 11/24/18 Time of Encounter: 08:57 - Assessment and Plan (1) Abdominal pain Current Visit: Yes Status: Acute Assessment and plan: Continues with gurgling mid abdominal and epigastric pain. GI consult has been placed by primary service. No appreciable urologic source via CT imaging. Plan: Following. Qualifiers: Abdominal location: epigastric Qualified Code(s): R10.13 - Epigastric pain (2) UTI (urinary tract infection) Current Visit: Yes Status: Acute Assessment and plan: On antibiotics. Cultures pending. Stent in place without hydronephrosis. Eveline n: Antibiotic management per primary service. No indications for further urologic interventions at this time. Qualifiers: Urinary tract infection type: acute cystitis Hematuria presence: with hematuria Qualified Code(s): N30.01 - Acute cystitis with hematuria Progress Note Subjective: nausea Objective Initial Vital Signs Temp Pulse Resp BP Pulse Ox 98.4 F 87 16 143/90 97 11/22/18 15:36 11/22/18 15:36 11/22/18 15:36 11/22/18 15:36 11/22/18 15:36 - General physical appearance Present: no distress, moderate pain - Respiratory Present: normal respiratory effort - Integumentary Present: no rash, no growths - Musculoskeletal Present: normal posture - Psychiatric Present: oriented to time, oriented to person, oriented to place - Labs 11/24/18 04:46 11/24/18 04:46 Diabetes panel 11/24/18 Range/Units 04:46 Sodium 142 (136-145) mEq/L Potassium 4.0 (3.5-5.1) mEq/L Chloride 103 (98-107) mEq/L Carbon Dioxide 30 H (23-29) mEq/L BUN 20 (8-23) mg/dL Creatinine 1.42 H (0.60-1.20) mg/dL Glucose 104 (70-105) mg/dL Calcium 8.6 (8.6-10.3) mg/dL Calcium panel 11/24/18 Range/Units 04:46 Calcium 8.6 (8.6-10.3) mg/dL Phosphorus 4.1 (2.7-4.5) mg/dL Pituitary panel 11/24/18 Range/Units 04:46 Sodium 142 (136-145) mEq/L Potassium 4.0 (3.5-5.1) mEq/L Chloride 103 (98-107) mEq/L Carbon Dioxide 30 H (23-29) mEq/L BUN 20 (8-23) mg/dL Creatinine 1.42 H (0.60-1.20) mg/dL Glucose 104 (70-105) mg/dL Calcium 8.6 (8.6-10.3) mg/dL Adrenal panel 11/24/18 Range/Units 04:46 Sodium 142 (136-145) mEq/L Potassium 4.0 (3.5-5.1) mEq/L Chloride 103 (98-107) mEq/L Carbon Dioxide 30 H (23-29) mEq/L BUN 20 (8-23) mg/dL Creatinine 1.42 H (0.60-1.20) mg/dL Glucose 104 (70-105) mg/dL Calcium 8.6 (8.6-10.3) mg/dL Consult Discharge Plan - Plan Referrals: Bi Christianson DO [Primary Care Provider] -
[2018-11-24] MEDS: Acetaminophen 325 MG TABLET PO PRN (14:31)
[2018-11-24] MEDS: *HR* Promethazine 25 MG/ML VIAL IVP PRN (15:42)
[2018-11-25] MEDS: 0.9 % Sodium Chloride 1,000 ML IVC SCH ×2 (04:33→15:51)
[2018-11-25] MEDS: Metoclopramide 10 MG/2 ML VIAL IVP SCH ×4 (04:53→23:54)
[2018-11-25] MEDS: *HR* Heparin 5,000 UNIT/ML VIAL SQ SCH ×2 (04:54→20:09)
[2018-11-25 05:03] LABS: Basophils % 0.5 %; Eosinophils # 0.2 K/mcL (0.0-0.6); Eosinophils % 3.2 %; Hematocrit 30.8 % (35.3-44.9); Hemoglobin 9.8 g/dL (11.5-15.4); Immature Granulocytes % 0.3 % (0-4); Lymphocytes # 1.6 K/mcL (0.6-4.6); Lymphocytes % 20.8 %; Mean Corpuscular HGB Conc 31.8 g/dL (31.6-35.5); Mean Corpuscular Hemoglobin 28.5 pg (28.0-33.3); Mean Corpuscular Volume 89.5 fL (83.0-100.0); Mean Platelet Volume 9.9 fL (9.4-12.4); Monocytes # 0.7 K/mcL (0.0-1.3); Monocytes % 9.8 %; Neutrophils # 4.9 K/mcL (1.6-8.9); Platelet Count 199 K/mcL (140-400); Red Blood Count 3.44 M/mcL (3.82-4.97); Red Cell Distribution Width 17.2 % (11.5-14.5); Segmented Neutrophils % 65.4 %; White Blood Count 7.4 K/mcL (4.3-11.1)
[2018-11-25 05:22] LABS: Calcium 8.6 mg/dL (8.6-10.3); Phosphorous 3.7 mg/dL (2.7-4.5); Potassium 3.3 mEq/L (3.5-5.1)
--- NOTE | 2018-11-25 08:16 | Internal Med Progress Note ---
Hospitalist Progress Note - Encounter Date of Encounter: 11/25/18 Time of Encounter: 08:00 - Subjective Interval History: No acute events overnight - Exam Vitals: Temp Pulse Resp BP Pulse Ox 98.1 F 84 14 146/66 92 11/25/18 07:27 11/25/18 07:27 11/25/18 07:27 11/25/18 07:27 11/25/18 07:27 Exam: General appearance: Present: A&O X 3, no acute distress Head exam: Present: normocephalic Respiratory exam: Diffuse midepigastric pain Cardiovascular exam: Present: RRR, +S1, +S2. Absent: diastolic murmur, gallop, rubs, systolic murmur GI/Abdominal exam: Soft, NT, ND, +BS Extremities exam: Absent: pedal edema Neurological exam: Present: alert, oriented X3, no focal deficits. Absent: altered - Assessment and Plan (1) UTI (urinary tract infection) Current Visit: Yes Status: Acute Assessment and Plan: Pt comes in with nausea and vomiting with urinalysis showing positive leukocyte esterase s/p recent ureteral stent Start on ceftriaxone. Obtain urine cultures. IV fluids. Zofran PRN UTI possibly due to/ associated with recent stent. Urine cultures pending (2) Abdominal pain Current Visit: Yes Status: Acute Assessment and Plan: Possibly related to UTI but pt describes a RUQ pain and mid epigastric pain Ultrasound of gall bladder and pancreas WNL. CT abdomen showed moderate sized hiatal hernia GI plan for endoscopy today (3) Chronic kidney disease Current Visit: Yes Status: Acute Assessment and Plan: CKD stage 3. At baseline. Continue IV fluids (4) Hypertension Current Visit: Yes Status: Chronic Assessment and Plan: Resume home meds (5) Coronary artery disease Current Visit: Yes Status: Acute Assessment and Plan: Continue aspirin and plavix (6) DVT prophylaxis Current Visit: Yes Status: Acute Assessment and Plan: Heparin sc - Time Spent with Patient Total time spent is greater than 50% in coordination of care (as documented) at patient's floor/unit and/or counseling patient: Internal Medicine: Result - Labs CBC & Chem 7: 11/25/18 04:00 11/25/18 04:00 Labs: Short CBC 11/25/18 Range/Units 04:00 WBC 7.4 (4.3-11.1) K/mcL Hgb 9.8 L (11.5-15.4) g/dL Hct 30.8 L (35.3-44.9) % Plt Count 199 (140-400) K/mcL Neutrophils # 4.9 (1.6-8.9) K/mcL BMP 11/25/18 04:00 Sodium 143 Potassium 3.3 L Chloride 98 Carbon Dioxide 36 H BUN 23 Creatinine 1.58 H Glucose 105 Calcium 8.6 Consult Discharge Plan - Plan Referrals: Bi Christianson DO [Primary Care Provider] - (1) UTI (urinary tract infection) Qualifiers: Urinary tract infection type: acute cystitis Hematuria presence: with hemat uria Qualified Code(s): N30.01 - Acute cystitis with hematuria (2) Abdominal pain Qualifiers: Abdominal location: epigastric Qualified Code(s): R10.13 - Epigastric pain (3) Chronic kidney disease Qualifiers: Chronic kidney disease stage: stage 3 (moderate) Qualified Code(s): N18.3 - Chronic kidney disease, stage 3 (moderate) (4) Hypertension Qualifiers: Hypertension type: unspecified Qualified Code(s): I10 - Essential (primary) hypertension (5) Coronary artery disease Qualifiers: Qualified Code(s): I25.10 - Atherosclerotic heart disease of [place] coronary artery without angina pectoris
--- NOTE | 2018-11-25 09:12 | Urology Progress Note ---
Date of Encounter: 11/25/18 Time of Encounter: 08:30 - Assessment and Plan (1) Abdominal pain Current Visit: Yes Status: Acute Assessment and plan: Patient is an 87-year-old female who presents 8 days status post right diagnostic ureteroscopy and right ureteral stent placement with Dr. Sanchez. Vital signs are stable and afebrile. Hemoglobin is 9.8. Renal function is stable. Patient experienced intractable nausea and vomiting as well as intermittent abdominal pain since her procedure. Patient underwent CT of the abdomen and pelvis that was reassuring from urologic standpoint. Right ureteral stent appears to be properly placed and functioning well. Patient is prepared to undergo EGD later today. Urine culture is negative, and patient has received IV Rocephin. Qualifiers: Abdominal location: epigastric Qualified Code(s): R10.13 - Epigastric pain Progress Note Narrative: Patient seen and examined sitting upright in bed in no apparent distress. Patient reports pain is well-controlled at present. Patient denies any nausea, vomiting, fever or chills. Patient states she is voiding without difficulty. Objective Initial Vital Signs Temp Pulse Resp BP Pulse Ox 98.4 F 87 16 143/90 97 11/22/18 15:36 11/22/18 15:36 11/22/18 15:36 11/22/18 15:36 11/22/18 15:36 - General physical appearance Present: well developed, no distress, no pain - Respiratory Present: normal expansion, normal respiratory effort - Abdomen Present: soft, non tender. Absent: distended - Genitourinary Present: other (No CVAT) - Integumentary Present: no rash, no abnormal pigmentation - Musculoskeletal Present: normal posture - Psychiatric Present: oriented to time, oriented to person, oriented to place, speech is normal, memory intact - Labs 11/25/18 04:00 11/25/18 04:00 Diabetes panel 11/25/18 Range/Units 04:00 Sodium 143 (136-145) mEq/L Potassium 3.3 L (3.5-5.1) mEq/L Chloride 98 (98-107) mEq/L Carbon Dioxide 36 H (23-29) mEq/L BUN 23 (8-23) mg/dL Creatinine 1.58 H (0.60-1.20) mg/dL Glucose 105 (70-105) mg/dL Calcium 8.6 (8.6-10.3) mg/dL Calcium panel 11/25/18 Range/Units 04:00 Calcium 8.6 (8.6-10.3) mg/dL Phosphorus 3.7 (2.7-4.5) mg/dL Pituitary panel 11/25/18 Range/Units 04:00 Sodium 143 (136-145) mEq/L Potassium 3.3 L (3.5-5.1) mEq/L Chloride 98 (98-107) mEq/L Carbon Dioxide 36 H (23-29) mEq/L BUN 23 (8-23) mg/dL Creatinine 1.58 H (0.60-1.20) mg/dL Glucose 105 (70-105) mg/dL Calcium 8.6 (8.6-10.3) mg/dL Adrenal panel 11/25/18 Range/Units 04:00 Sodium 143 (136-145) mEq/L Potassium 3.3 L (3.5-5.1) mEq/L Chloride 98 (98-107) mEq/L Carbon Dioxide 36 H (23-29) mEq/L BUN 23 (8-23) mg/dL Creatinine 1.58 H (0.60-1.20) mg/dL Glucose 105 (70-105) mg/dL Calcium 8.6 (8.6-10.3) mg/dL Consult Discharge Plan - Plan Referrals: Bi Christianson DO [Primary Care Provider] -
[2018-11-25] MEDS: amLODIPine 5 MG TABLET PO SCH (10:25)
[2018-11-25] MEDS: Aspirin Enteric Coated 81 MG Tablet PO SCH (10:25)
[2018-11-25] MEDS: cefTRIAXone 1,000 MG in Water for inj. (sterile) 10 ML IVP SCH (10:26)
[2018-11-25] MEDS: Potassium Chloride Elixir 20 MEQ/15 ML UDC PO SCH ×2 (10:26→15:43)
[2018-11-25] MEDS: Isosorbide MONOnitrate (24 HR) 30 MG TAB.ER.24H PO SCH (10:26)
[2018-11-25] MEDS: Cholecalciferol (D-3) 1,000 UNIT TABLET PO SCH (10:46)
--- NOTE | 2018-11-25 11:22 | Anesthesia Evaluation PreOp ---
<Bryce Hurley - Last Filed: 11/25/18 11:20> Date of Encounter: 11/25/18 - Past History Planned Operation: EGD Cardiac History: HTN, Hyperlipidemia, Other (CAD, AAA stable and <5cm) Pulmonary History: Asthma TIRE CURER History: Other (depression) Other Medical History: GERD, Other (cancer) Anesthesia History: No Prior Anesthetic Complications, Past Anesthesia (ureteral stent 6-19, breast sx, bilateral TKA) Alcohol Use: none Drug use: none Medications and Allergies Allopurinol [Zyloprim 100 MG] 100 mg PO DAILY 11/15/18 [History] Aspirin [Adult Aspirin] 81 mg PO DAILY 11/15/18 [History] Atorvastatin [Lipitor] 40 mg PO QPM 11/15/18 [History] Carvedilol 12.5 mg PO BID 11/15/18 [History] Cholecalciferol (Vitamin D3) [Vitamin D3] 2,000 units PO DAILY 11/15/18 [History] Clopidogrel Bisulfate [Plavix] 75 mg PO DAILY 11/15/18 [History] Duloxetine HCl [Cymbalta] 60 mg PO DAILY 11/15/18 [History] Isosorbide MONOnitrate [Isosorbide Mononitrate ER] 30 mg PO DAILY 11/15/18 [History] Meclizine HCl [Verticalm] 25 mg PO TID PRN 11/15/18 [History] Oxybutynin [Ditropan] 5 mg PO BID 11/15/18 [History] Pantoprazole Sodium [Protonix] 40 mg PO DAILY 11/15/18 [History] Magnesium Oxide [Magnesium] 400 mg PO BID 11/18/18 [History] Allergy/AdvReac Type Severity Reaction Status Date / Time baclofen Allergy Hives Verified 11/15/18 23:26 ciprofloxacin [From Cipro] Allergy Hives Verified 11/15/18 23:26 clindamycin Allergy Hives Verified 11/15/18 23:26 morphine Allergy Hives Verified 11/15/18 23:26 Penicillins [PCN] Allergy Hives Verified 11/15/18 23:26 Sulfa (Sulfonamide Allergy Hives Verified 11/15/18 23:26 Antibiotics) topiramate [From Topamax] Allergy Hives Verified 11/15/18 23:26 - Meds/Allergy Pre-op Review Medications Reviewed: Yes Allergies Reviewed: Yes Beta Blockers on Current Med List: Yes (Coreg) If Beta Blockers taken, Date/Time (Last Dose taken): today 1025 Anesthesia Results - Labs 11/25/18 04:00 11/25/18 04:00 - Imaging EKG: report reviewed (Sinus rhythm Left anterior fascicular block Left ventricular hypertrophy) Anesthesia Exam Selected Entries 11/25/18 07:27 Temperature 98.1 F Pulse Rate 84 Respiratory Rate 14 Blood Pressure 146/66 O2 Sat by Pulse Oximetry 92 Oxygen Delivery Method Room Air Weight: 74kg - HEENT Pupil (Motor): EOMI Mallampati: II Teeth: Edentulous - TIRE CURER LOC: Oriented TIRE CURER Motor: Normal RUE, Normal LUE, Normal RLE, Normal LLE, Normal Face TIRE CURER Sensory: Normal: RUE, LUE, RLE, LLE, Face - Cardiac Rhythm: Regular Murmur: None - Pulmonary Breath Sounds: bilateral Clear Respiratory Effort: Symmetrical Anesthesia Assess/Plan ASA Score: 3 Level of consciousness: Cooperative, Oriented Anesthetic Plan: MAC Monitoring Plan: Standard Monitors Recovery Plan: PACU (agrees to MAC) <Debbie Christensen - Last Filed: 11/25/18 13:37> Date of Encounter: 11/25/18 Time of Encounter: 13:20 - Past History Cardiac History: Cardiac Stent (Stent x 1 placed 05/2018. 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 Bharati Moore MD
[2018-11-25] MEDS ORDERED: Lidocaine -MPF 2% 2 ML VIAL ONE (12:26)
[2018-11-25] MEDS ORDERED: *HR* Propofol 200 MG/20 ML VIAL IVP ONE (12:26)
[2018-11-25] MEDS ORDERED: Propofol 500 MG/50 ML INFUS..BTL ONE (13:06)
--- NOTE | 2018-11-25 13:22 | Gastroenterology Consult Note ---
<Nguyen Bansal - Last Filed: 11/25/18 14:27> Date of Encounter: 11/25/18 Time of Encounter: 09:20 - Assessment and plan (1) Abdominal pain Current Visit: Yes Status: Acute Assessment and plan: Pt with recent stent placement for kidney stones. She presented with RUQ pain and nausea. Will proceed with EGD to rule out esophagitis, gastritis, pud and duodenitis. Continue pPI. Qualifiers: Abdominal location: epigastric Qualified Code(s): R10.13 - Epigastric pain (2) UTI (urinary tract infection) Current Visit: Yes Status: Acute Qualifiers: Urinary tract infection type: acute cystitis Hematuria presence: with hematuria Qualified Code(s): N30.01 - Acute cystitis with hematuria - Time Spent With Patient Total time spent is greater than 50% in coordination of care (as documented) at patient's floor/unit and/or counseling patient: GI History of Present Illness - Data of Consult Patient: new to practice Consult date: 11/25/18 Requesting Physician: Paula Leach - Consult Narrative Reason for consult: ruq pain History of present illness: Ms. Dee is a 87 year old female with pmh of CKD stage 3, kidney stones s/p recent right sided ureteral stent placement, CAD. She presented with complaints of nausea, vomiting abdominal pain that has been going on for about a week. Patient says she had nausea and vomiting prior to her stent placement but nothing to this severity. She says since sunday, she has had multiple episodes of nausea and vomiting and has been unable to keep anything down. She also complains of generalized abdominal pain, more pronounced in the right upper quadrant. She denies any fevers, chills or diarrhea. She admits to some relief with tylenol at home. She was at her urology appointment today and noted to be nauseous and vomiting and was sent to the ER. In the ER, a CT abdomen was done showing mild inflammatory changes around the right kidney and a right ureter stent. She was started on fluids and ceftriaxone. She complains of abdominal bloating and epigastric pain, she states she has been taking gaviscon and prilosec at home. She denies diarrhea, she reports nausea without vomiting. procedures: colonoscopy 2016 per pt in [place] normal nsaids: asa anticoagulants: plavix and subq heparin Past Med Surg Social Fam HX - Past Medical History Medical history: aortic aneurysm, arthritis, asthma, cancer, CHF, coronary artery disease, GERD, hyperlipidemia, hypertension, kidney stones, renal disease Additional medical history: gout. lumbar stenosis Psychiatric history: anxiety, depression - Past Surgical History Surgical History: breast surgery, cancer surgery Additional surgical history: Stent 2018, BL knee replacement, Rectocele, - Social History Smoking Status: Never smoker Smokeless Tobacco Status: No Alcohol use: none Drug use: none - Family History Mother Living Status: Hx Family Cardiac Disorders: Yes (HTN) Father Living Status: Hx Family Cancer: Yes (Lung) Review of Systems: GI: as per [facility]: denies fever, has some chills EYES: denies yellow discoloration ENT: denies pain with swallowing or difficulty swallowing CARDIO: denies chest pain, palpitations RESP: No Shortness of breath with exertion : denies change in color of urine NEURO: denies any weakness HEME: Denies any bruising MS: denies joint pain, joint swelling or back pain. DERM: denies rash or itching PSYCH: Denies history of anxiety or depression - Constitutional Vitals: Temp Pulse Resp BP Pulse Ox 98.8 F 83 15 147/70 93 11/25/18 12:34 11/25/18 12:34 11/25/18 12:34 11/25/18 12:34 11/25/18 12:34 Exam: CONSTITUTIONAL:alert, no acute distress.HEAD:normocephalic.EYES:no jaundice.NECK:no obvious swelling.HEART:regular rate and rhythm, no murmurs.LUNGS:bilateral good air entry.ABDOMEN:distended, soft, tender RUQ and epigastric area, no masses palpable, no organomegaly.RECTAL EXAM:Deferred.EXTREMITIES:no clubbing, cyanosis or edema.SKIN:no stigmata of chronic liver disease.NEUROLOGIC:no obvious focal defect. Results - Labs CBC & Chem 7: 11/25/18 04:00 11/25/18 04:00 Labs: Last Result 11/25/18 04:00 Calcium 8.6 Entire Visit 11/25/18 04:00 Hgb 9.8 L Hct 30.8 L Consult Discharge Plan - Plan Referrals: Bi Christianson DO [Primary Care Provider] - <Maximus,Alexis - Last Filed: 11/27/18 05:29> Date of Encounter: 11/25/18 - Time Spent With Patient Total time spent is greater than 50% in coordination of care (as documented) at patient's floor/unit and/or counseling patient: GI History of Present Illness - Data of Consult Requesting Physician: Paula Leach - Consult Narrative History of present illness: Ms. 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 Residual contrast remains within the stomach 4 hours and 45 minutes after the start of the study at which time contrast material has progressed to the colon. D/ / 11/26/2018 17:07:23 Merrill Dias MD / opal Interpreting Provider: Merrill Dias MD - Attending Attestation Unfortunate patient admitted with nausea, vomiting, early satiety and profound weight loss. She initially says 4 weeks but, I feel it has been going on for much longer. She also complains of post prandial cramping in her abdomen but, vomits shortly after she eats anything. Appears to have some outlet obstruction features. Plan EGD. Discussed with family.
[2018-11-25] MEDS ORDERED: Dexamethasone 4 MG/ML VIAL IVP ONE (14:21)
[2018-11-25] MEDS ORDERED: Ipratropium/Albuterol Neb 3 ML IH ONE (14:21)
[2018-11-25] MEDS ORDERED: Ipratropium/Albuterol Neb 3 ML ONE (14:28)
[2018-11-25] MEDS ORDERED: Dexamethasone 4 MG/ML VIAL ONE (14:34)
--- NOTE | 2018-11-25 15:52 | Anesthesia Evaluation Post Op ---
Date of Encounter: 11/25/18 Time of Encounter: 14:35 - Vital Signs Vital Signs: Vital Signs Temp Pulse Resp BP Pulse Ox 11/25/18 15:45 98.1 F 79 16 163/71 95 11/25/18 14:40 99.2 F 80 20 154/75 94 11/25/18 14:30 78 18 157/74 98 11/25/18 14:20 81 20 153/77 94 11/25/18 14:10 98.5 F 82 16 140/73 96 11/25/18 13:20 98.3 F 79 16 158/63 94 11/25/18 12:34 98.8 F 83 15 147/70 93 11/25/18 09:00 94 11/25/18 07:27 98.1 F 84 14 146/66 92 11/25/18 03:08 98.7 F 79 16 142/48 92 11/24/18 19:23 98.6 F 88 16 152/76 96 Intake and Output 11/24/18 11/25/18 11/25/18 23:59 07:59 15:59 Intake Total 1480 / 3730 0 / 0 Output Total 300 / 900 0 / 0 Balance 1180 / 2830 0 / 0 Intake: IV Fluids 1000 / 3010 0.9 % Sodium Chloride 1,000 ML 1000 / 3000 @ 100 mls/hr IVC .Q10H STEPHANIE Rx#: [id number] Oral 480 / 720 0 / 0 Output: Urine 0 / 0 Emesis 300 / 600 Other: # Voids 0 0 # Bowel Movements 0 Weight 73.7 kg Blood Glucose* 96 104 82 Patient Weight 11/25/18 23:59 Weight 73.7 kg - Lungs Lungs: Clear Ascult./Percussion - Airway Airway: Non-obstructed - Cardiovascular Baseline Rhythm - Mental Status Mental Status: Alert & Oriented, Answers Appropriately - Pain Pain Scale: 0 Pain Scale used: Numeric (1 - 10) - Nausea Vomiting Nausea Vomiting: Not Present - Hydration Hydration: Ice chips, Has not voided - Discharge PostOp Status: Transfer Patient to floor Anes Supervising Prov Stmt: Pt seen/evaluated, VSS And has met criteria for discharge to floor. - MD Oscar
[2018-11-25] MEDS: Acetaminophen 325 MG TABLET PO PRN (17:09)
[2018-11-25] MEDS: *HR* Promethazine 25 MG/ML VIAL IVP PRN (21:00)
[2018-11-25] MEDS: Ondansetron 4 MG/2 ML VIAL IVP PRN (22:32)
[2018-11-26] MEDS ORDERED: Potassium Chloride 20 MEQ, Lidocaine 1% 2 ML in D5% in Water 250 ML IVPB ONE (01:39)
[2018-11-26] MEDS ORDERED: Scopolamine Patch 1.5 MG PATCH.TD72 TD ONE (02:31)
--- NOTE | 2018-11-26 02:46 | Event Note ---
Date of Encounter: 11/25/18 Time of Encounter: 20:38 Alerted by pts. nurse YOON Tabor that the patient's BP was 181/73 and when necessary hydralazine was not due for another hour. One-time dose of hydralazine IV push ordered with instructions to hold 21:00 dose. Alerted at 20:53 the patient was now vomiting. Nurse reported this is been going on since admission. Nurse questioned giving Phenergan and hydralazine together. Nurse instructed to give Phenergan first, then hydralazine 10-15 minutes later. Alerted at 22:06 the patient's BP was now 147/74. Alerted at 01:23 that patient has had Phenergan 25 mg, Zofran 4 mg, and Reglan 5 mg and still complaining of nausea and vomiting. Patient has vomited 1000 mL so far. Compazine contraindicated with everything she has thus far taken due to risk of tardive dyskinesia. NG tube ordered w/KUB to verify correct placement. In reviewing chart, I discovered patient's potassium 3.3. Cardiac monitoring and K rider 20 mEq ordered. Nurse called to tell me that the pt. would like to speak with me. Went to see the pt. who was resting in bed. Pt. stated that she did not want an NG tube at this time and wished to try anything else. I explained that she has received most of the anti-nausea medications to no avail and that my concern is for dehydration and electrolyte imbalance. I explained that an NG tube would help decompress her stomach and relieve the N/V. Pt. wished to try other alternatives. Pt. also wishes to have her diet order DCd as she cannot keep anything down. NPO except ice chips ordered. IVP Phenergan and Reglan DCd. IVPB Phenergan ordered for more consistent delivery of the medication. Scopolamine patch ordered as well. A.M labs to be monitored closely for signs of electrolyte imbalance so they may be repleted. Pt. expressed understanding and agreement to current plan and will do NG tube in a.m. if this treatment course is unsuccessful. Nurse instructed to continue monitoring her patient very closely and alert me immediately of any adverse changes.
[2018-11-26] MEDS: Promethazine 12.5 MG in 0.9 % Sodium Chloride 50 ML IVPB PRN ×2 (02:58→10:00)
[2018-11-26] MEDS: 0.9 % Sodium Chloride 1,000 ML IVC SCH ×4 (04:21→20:54)
[2018-11-26 05:10] LABS: Basophils % 0.1 %; Hematocrit 32.4 % (35.3-44.9); Hemoglobin 10.4 g/dL (11.5-15.4); Immature Granulocytes % 0.4 % (0-4); Lymphocytes # 1.2 K/mcL (0.6-4.6); Lymphocytes % 6.8 %; Mean Corpuscular HGB Conc 32.1 g/dL (31.6-35.5); Mean Corpuscular Hemoglobin 28.7 pg (28.0-33.3); Mean Corpuscular Volume 89.3 fL (83.0-100.0); Mean Platelet Volume 11.4 fL (9.4-12.4); Monocytes # 0.7 K/mcL (0.0-1.3); Neutrophils # 15.7 K/mcL (1.6-8.9); Platelet Count 212 K/mcL (140-400); Red Blood Count 3.63 M/mcL (3.82-4.97); Red Cell Distribution Width 17.2 % (11.5-14.5); Segmented Neutrophils % 88.7 %
[2018-11-26 05:11] LABS: White Blood Count 17.7 K/mcL (4.3-11.1)
[2018-11-26 05:30] LABS: Calcium 9.1 mg/dL (8.6-10.3); Magnesium 1.9 mg/dL (1.6-2.6); Phosphorous 3.5 mg/dL (2.7-4.5); Potassium 3.8 mEq/L (3.5-5.1)
[2018-11-26] MEDS: *HR* Heparin 5,000 UNIT/ML VIAL SQ SCH ×2 (05:32→17:11)
[2018-11-26] MEDS ORDERED: levoFLOXacin 750 MG/150 ML 750 MG/150 ML BAG IVPB SCH (06:00)
--- NOTE | 2018-11-26 08:46 | Internal Med Progress Note ---
Hospitalist Progress Note - Encounter Date of Encounter: 11/26/18 Time of Encounter: 08:40 - Subjective Interval History: No acute events overnight - Exam Vitals: Temp Pulse Resp BP Pulse Ox 99.1 F 91 14 181/79 93 11/26/18 08:07 11/26/18 08:07 11/26/18 08:07 11/26/18 08:07 11/26/18 08:07 Exam: General appearance: Present: A&O X 3, no acute distress Head exam: Present: normocephalic Respiratory exam: Diffuse midepigastric pain Cardiovascular exam: Present: RRR, +S1, +S2. Absent: diastolic murmur, gallop, rubs, systolic murmur GI/Abdominal exam: Soft, NT, ND, +BS Extremities exam: Absent: pedal edema Neurological exam: Present: alert, oriented X3, no focal deficits. Absent: altered - Assessment and Plan (1) Abdominal pain Current Visit: Yes Status: Acute Assessment and Plan: Possibly related to UTI but pt describes a RUQ pain and mid epigastric pain Ultrasound of gall bladder and pancreas WNL. CT abdomen showed moderate sized hi atal hernia Endoscopy showed duodenal obstruction likely responsible for her recurrent vomiting Barium swallow with small paula follow through ordered today per GI recs (2) UTI (urinary tract infection) Current Visit: Yes Status: Acute Assessment and Plan: Pt comes in with nausea and vomiting with urinalysis showing positive leukocyte esterase s/p recent ureteral stent Start on ceftriaxone. Obtain urine cultures. IV fluids. Zofran PRN Complete 5-7 days of antibiotics for possible complicated UTI (3) Chronic kidney disease Current Visit: Yes Status: Acute Assessment and Plan: CKD stage 3. At baseline. Continue IV fluids (4) Hypertension Current Visit: Yes Status: Chronic Assessment and Plan: Resume home meds (5) Coronary artery disease Current Visit: Yes Status: Acute Assessment and Plan: Continue aspirin and plavix (6) Leukocytosis Current Visit: Yes Status: Acute Assessment and Plan: Likely secondary to decadron administered during endoscopy (7) DVT prophylaxis Current Visit: Yes Status: Acute Assessment and Plan: Heparin sc - Time Spent with Patient Total time spent is greater than 50% in coordination of care (as documented) at patient's floor/unit and/or counseling patient: Internal Medicine: Result - Labs CBC & Chem 7: 11/26/18 04:35 11/26/18 04:35 Labs: Short CBC 11/26/18 Range/Units 04:35 WBC 17.7 H D (4.3-11.1) K/mcL Hgb 10.4 L (11.5-15.4) g/dL Hct 32.4 L (35.3-44.9) % Plt Count 212 (140-400) K/mcL Neutrophils # 15.7 H (1.6-8.9) K/mcL BMP 11/26/18 04:35 Sodium 145 Potassium 3.8 Chloride 98 Carbon Dioxide 34 H BUN 25 H Creatinine 1.37 H Glucose 149 H Calcium 9.1 Consult Discharge Plan - Plan Referrals: Bi Christianson DO [Primary Care Provider] - (1) Abdominal pain Qualifiers: Abdominal location: epigastric Qualified Code(s): R10.13 - Epigastric pain (2) UTI (urinary tract infection) Qualifiers: Urinary tract infection type: acute cystitis Hematuria presence: with hematuria Qualified Code(s): N30.01 - Acute cystitis with hematuria (3) Chronic kidney disease Qualifiers: Chronic kidney disease stage: stage 3 (moderate) Qualified Code(s): N18.3 - Chronic kidney disease, stage 3 (moderate) (4) Hypertension Qualifiers: Hypertension type: unspecified Qualified Code(s): I10 - Essential (primary) hypertension (5) Coronary artery disease Qualifiers: Qualified Code(s): I25.10 - Atherosclerotic heart disease of [place] coronary artery without angina pectoris (6) Leukocytosis Qualifiers: Qualified Code(s): D72.829 - Elevated white blood cell count, unspecified
[2018-11-26] MEDS: Aspirin Enteric Coated 81 MG Tablet PO SCH (08:57)
[2018-11-26] MEDS: Isosorbide MONOnitrate (24 HR) 30 MG TAB.ER.24H PO SCH (08:57)
[2018-11-26] MEDS: Cholecalciferol (D-3) 1,000 UNIT TABLET PO SCH (08:57)
[2018-11-26] MEDS: amLODIPine 5 MG TABLET PO SCH (08:58)
[2018-11-26] MEDS: cefTRIAXone 1,000 MG in Water for inj. (sterile) 10 ML IVP SCH (08:59)
[2018-11-27] MEDS: Acetaminophen 325 MG TABLET PO PRN (05:59)
[2018-11-27] MEDS: *HR* Heparin 5,000 UNIT/ML VIAL SQ SCH ×2 (06:00→18:28)
[2018-11-27] MEDS: 0.9 % Sodium Chloride 1,000 ML IVC SCH ×2 (06:55→18:29)
[2018-11-27 08:03] LABS: Basophils % 0.3 %; Eosinophils # 0.3 K/mcL (0.0-0.6); Hematocrit 29.7 % (35.3-44.9); Hemoglobin 9.3 g/dL (11.5-15.4); Immature Granulocytes % 0.4 % (0-4); Lymphocytes # 1.2 K/mcL (0.6-4.6); Lymphocytes % 11.7 %; Mean Corpuscular HGB Conc 31.3 g/dL (31.6-35.5); Mean Corpuscular Hemoglobin 28.9 pg (28.0-33.3); Mean Corpuscular Volume 92.2 fL (83.0-100.0); Mean Platelet Volume 11.7 fL (9.4-12.4); Monocytes # 0.8 K/mcL (0.0-1.3); Monocytes % 7.9 %; Neutrophils # 8.1 K/mcL (1.6-8.9); Platelet Count 169 K/mcL (140-400); Red Blood Count 3.22 M/mcL (3.82-4.97); Red Cell Distribution Width 17.3 % (11.5-14.5); Segmented Neutrophils % 76.7 %; White Blood Count 10.6 K/mcL (4.3-11.1)
[2018-11-27 08:23] LABS: Calcium 8.6 mg/dL (8.6-10.3); Magnesium 1.8 mg/dL (1.6-2.6); Phosphorous 2.6 mg/dL (2.7-4.5); Potassium 3.4 mEq/L (3.5-5.1)
[2018-11-27] MEDS ORDERED: Potassium Effervescent 25 MEQ TABLET.EFF PO ONE (08:40)
[2018-11-27] MEDS: Aspirin Enteric Coated 81 MG Tablet PO SCH (08:42)
[2018-11-27] MEDS: amLODIPine 5 MG TABLET PO SCH (08:42)
[2018-11-27] MEDS: Cholecalciferol (D-3) 1,000 UNIT TABLET PO SCH (08:42)
[2018-11-27] MEDS: Isosorbide MONOnitrate (24 HR) 30 MG TAB.ER.24H PO SCH (08:43)
[2018-11-27] MEDS: cefTRIAXone 1,000 MG in Water for inj. (sterile) 10 ML IVP SCH (08:43)
[2018-11-27] MEDS: Pantoprazole 40 MG VIAL IVP SCH (08:43)
--- NOTE | 2018-11-27 11:40 | Internal Med Progress Note ---
Hospitalist Progress Note - Encounter Date of Encounter: 11/27/18 Time of Encounter: 11:38 - Subjective Interval History: Evaluated patient earlier today. Lying down in bed. Comfortable. Denied any chest pain or palpitations. No nausea or vomiting. No abdominal pain. Has been nothing by mouth since after her scope. - Exam Vitals: Temp Pulse Resp BP Pulse Ox 98.3 F 80 16 152/69 94 11/27/18 10:43 11/27/18 10:43 11/27/18 10:43 11/27/18 10:43 11/27/18 10:43 Exam: General: Patient is alert, no acute distress, oriented x 3 Respiratory: Good respiratory effort. Normal breath sounds. No wheezing or crackles. Cardiovascular: Regular rate and rhythm. s1 and s2 normal No clicks, rubs, gallops, or murmurs. No pedal edema Abdomen: Abdomen is soft, nontender. Bowel sounds are present Musculoskeletal: Spontaneously moving all extremities Skin: warm, dry, intact. 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 (3) Abdominal pain Current Visit: Yes Status: Acute (4) Hypertension Current Visit: Yes Status: Chronic (5) Chronic kidney disease Current Visit: Yes Status: Acute (6) UTI (urinary tract infection) Current Visit: Yes Status: Acute (7) Coronary artery disease Current Visit: Yes Status: Acute (8) DVT prophylaxis Current Visit: Yes Status: Acute (9) Leukocytosis Current Visit: Yes Status: Acute (10) Severe protein-calorie malnutrition Current Visit: Yes Status: Chronic DVT Prophylaxis: On subcutaneous heparin - Summary of Assessment and Plan Summary of Assessment and Plan: Acute gastritis with underlying duodenal stenosis: Small bowel follow-through study done yesterday did appear to confirm findings of duodenal stenosis. Discussed with gastroenterology. Recommended to keep nothing by mouth after midnight and to allow for sips of liquids today. Plan is to re-scope her with a pediatric scope. Continue PPI. Complicated UTI: Urine cultures are negative. Patient receiving IV ceftriaxone. 5 days of IV antibiotic therapy completed. We will stop antibiotics. Chronic kidney disease stage III: Creatinine 1.31 today. Stable. Coronary artery disease: Continue aspirin, Plavix and statin. Essential hypertension: Continue carvedilol and amlodipine. Moderate risk for complications. - Time Spent with Patient Total time spent is greater than 50% in coordination of care (as documented) at patient's floor/unit and/or counseling patient: Internal Medicine: Result - Labs CBC & Chem 7: 11/27/18 06:50 11/27/18 06:50 Labs: Short CBC 11/27/18 Range/Units 06:50 WBC 10.6 (4.3-11.1) K/mcL Hgb 9.3 L (11.5-15.4) g/dL Hct 29.7 L (35.3-44.9) % Plt Count 169 (140-400) K/mcL Neutrophils # 8.1 (1.6-8.9) K/mcL BMP 11/27/18 06:50 Sodium 142 Potassium 3.4 L Chloride 101 Carbon Dioxide 31 H BUN 31 H Creatinine 1.31 H Glucose 88 Calcium 8.6 - Impressions Impressions Small Bowel X-Ray 11/26/18 10:42 IMPRESSION: Findings consistent with the clinical history of duodenal stenosis given delayed passage of contrast from a moderately dilated stomach into the small bowel. Residual contrast remains within the stomach 4 hours and 45 minutes after the start of the study at which time contrast material has progressed to the colon. D/ / 11/26/2018 17:07:23 Merrill Dias MD / opal Interpreting Provider: Merrill Dias MD Consult Discharge Plan - Plan Referrals: Bi Christianson DO [Primary Care Provider] - (1) Gastritis Qualifiers: Gastritis type: other gastritis Chronicity: acute Gastritis bleeding: without bleeding Qualified Code(s): K29.00 - Acute gastritis without bleeding (3) Abdominal pain Qualifiers: Abdominal location: epigastric Qualified Code(s): R10.13 - Epigastric pain (4) Hypertension Qualifiers: Hypertension type: unspecified Qualified Code(s): I10 - Essential (primary) hypertension (5) Chronic kidney disease Qualifiers: Chronic kidney disease stage: stage 3 (moderate) Qualified Code(s): N18.3 - Chronic kidney disease, stage 3 (moderate) (6) UTI (urinary tract infection) Qualifiers: Urinary tract infection type: acute cystitis Hematuria presence: with hematuria Qualified Code(s): N30.01 - Acute cystitis with hematuria (7) Coronary artery disease Qualifiers: Qualified Code(s): I25.10 - Atherosclerotic heart disease of [place] coronary artery without angina pectoris (9) Leukocytosis Qualifiers: Qualified Code(s): D72.829 - Elevated white blood cell count, unspecified
--- NOTE | 2018-11-27 18:47 | Anesthesia Evaluation PreOp ---
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) Pulmonary History: Asthma MEDICAL NURSE History: Other (depression) Other Medical History: GERD, Other (cancer) Anesthesia History: No Prior Anesthetic Complications, Past Anesthesia (ureteral stent 11-20, breast sx, bilateral TKA) : No Alcohol Use: none Drug use: none Medications and Allergies Allopurinol [Zyloprim 100 MG] 100 mg PO DAILY 11/15/18 [History] Aspirin [Adult Aspirin] 81 mg PO DAILY 11/15/18 [History] Atorvastatin [Lipitor] 40 mg PO QPM 11/15/18 [History] Carvedilol 12.5 mg PO BID 11/15/18 [History] Cholecalciferol (Vitamin D3) [Vitamin D3] 2,000 units PO DAILY 11/15/18 [Histo ry] Clopidogrel Bisulfate [Plavix] 75 mg PO DAILY 11/15/18 [History] Duloxetine HCl [Cymbalta] 60 mg PO DAILY 11/15/18 [History] Isosorbide MONOnitrate [Isosorbide Mononitrate ER] 30 mg PO DAILY 11/15/18 [History] Meclizine HCl [Verticalm] 25 mg PO TID PRN 11/15/18 [History] Oxybutynin [Ditropan] 5 mg PO BID 11/15/18 [History] Pantoprazole Sodium [Protonix] 40 mg PO DAILY 11/15/18 [History] Magnesium Oxide [Magnesium] 400 mg PO BID 11/18/18 [History] Allergy/AdvReac Type Severity Reaction Status Date / Time baclofen Allergy Hives Verified 11/15/18 23:26 ciprofloxacin [From Cipro] Allergy Hives Verified 11/15/18 23:26 clindamycin Allergy Hives Verified 11/15/18 23:26 morphine Allergy Hives Verified 11/15/18 23:26 Penicillins [PCN] Allergy Hives Verified 11/15/18 23:26 Sulfa (Sulfonamide Allergy Hives Verified 11/15/18 23:26 Antibiotics) topiramate [From Topamax] Allergy Hives Verified 11/15/18 23:26 - Meds/Allergy Pre-op Review Medications Reviewed: Yes Allergies Reviewed: Yes Beta Blockers on Current Med List: Yes If Beta Blockers taken, Date/Time (Last Dose taken): 11/27/18 @ 18:28 Anesthesia Results - Labs 11/27/18 06:50 11/27/18 06:50 - Imaging EKG: report reviewed (Sinus rhythm Left anterior fascicular block Left ventricular hypertrophy) Anesthesia Exam Vital Signs/O2 Sat, Most Current Temp Pulse Resp BP Pulse Ox 98.2 F 80 15 141/62 94 11/27/18 17:31 11/27/18 17:31 11/27/18 17:31 11/27/18 17:31 11/27/18 17:31 - HEENT Pupil (Motor): Pupils equal, EOMI Mallampati: II Teeth: Edentulous Oral Opening: Greater than 3 - MEDICAL NURSE LOC: Oriented MEDICAL NURSE Motor: Normal RUE, Normal LUE, Normal RLE, Normal LLE, Normal Face MEDICAL NURSE Sensory: Normal: RUE, LUE, RLE, LLE, Face - Cardiac Rhythm: Regular Murmur: None JVD: No Carotid Bruit: No - Pulmonary Breath Sounds: bilateral Clear Respiratory Effort: Symmetrical Anesthesia Assess/Plan ASA Score: 3 Level of consciousness: Cooperative Anesthetic Plan: MAC Autologous Blood: Yes Monitoring Plan: Standard Monitors Recovery Plan: Other
[2018-11-28] MEDS: Acetaminophen 325 MG TABLET PO PRN ×2 (01:02→13:59)
[2018-11-28] MEDS: 0.9 % Sodium Chloride 1,000 ML IVC SCH (04:30)
[2018-11-28] MEDS: *HR* Heparin 5,000 UNIT/ML VIAL SQ SCH ×2 (05:42→16:53)
[2018-11-28 06:50] LABS: Basophils % 0.4 %; Eosinophils # 0.5 K/mcL (0.0-0.6); Eosinophils % 6.6 %; Hemoglobin 8.4 g/dL (11.5-15.4); Immature Granulocytes % 0.5 % (0-4); Lymphocytes % 13.9 %; Mean Corpuscular HGB Conc 31.1 g/dL (31.6-35.5); Mean Corpuscular Hemoglobin 28.1 pg (28.0-33.3); Mean Corpuscular Volume 90.3 fL (83.0-100.0); Monocytes # 0.5 K/mcL (0.0-1.3); Monocytes % 6.8 %; Neutrophils # 5.4 K/mcL (1.6-8.9); Platelet Count 164 K/mcL (140-400); Red Blood Count 2.99 M/mcL (3.82-4.97); Red Cell Distribution Width 17.1 % (11.5-14.5); Segmented Neutrophils % 71.8 %; White Blood Count 7.5 K/mcL (4.3-11.1)
[2018-11-28 08:33] LABS: Magnesium 1.8 mg/dL (1.6-2.6); Phosphorous 2.6 mg/dL (2.7-4.5); Potassium 3.5 mEq/L (3.5-5.1)
[2018-11-28] MEDS: Aspirin Enteric Coated 81 MG Tablet PO SCH (09:16)
[2018-11-28] MEDS: Cholecalciferol (D-3) 1,000 UNIT TABLET PO SCH (09:17)
[2018-11-28] MEDS: Pantoprazole 40 MG VIAL IVP SCH (09:20)
[2018-11-28] MEDS: Isosorbide MONOnitrate (24 HR) 30 MG TAB.ER.24H PO SCH (09:21)
[2018-11-28] MEDS: amLODIPine 5 MG TABLET PO SCH (09:21)
--- NOTE | 2018-11-28 13:51 | Internal Med Progress Note ---
Hospitalist Progress Note - Encounter Date of Encounter: 11/28/18 Time of Encounter: 13:49 - Subjective Interval History: Evaluated patient earlier today. She is complaining of back pain in the lower thoracic region radiating to the left. She states that she gets this kind of pain intermittently at home and takes Tylenol for it. She has been nothing by mouth for scheduled upper GI endoscopy today. - Exam Vitals: Temp Pulse Resp BP Pulse Ox 98.7 F 77 16 172/74 95 11/28/18 11:37 11/28/18 11:37 11/28/18 11:37 11/28/18 11:37 11/28/18 11:37 Exam: General: Patient is alert, no acute distress, oriented x 3 Respiratory: Good respiratory effort. Normal breath sounds. No wheezing or crackles. Cardiovascular: Regular rate and rhythm. s1 and s2 normal No clicks, rubs, gallops, or murmurs. No pedal edema Abdomen: Abdomen is soft, nontender. Bowel sounds are present Back exam: Paraspinal tenderness on the left side of her thoracic and upper lumbar region Musculoskeletal: Spontaneously moving all extremities Skin: warm, dry, intact. 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 (3) Abdominal pain Current Visit: Yes Status: Acute (4) Hypertension Current Visit: Yes Status: Chronic (5) Chronic kidney disease Current Visit: Yes Status: Acute (6) UTI (urinary tract infection) Current Visit: Yes Status: Acute (7) Coronary artery disease Current Visit: Yes Status: Acute (8) DVT prophylaxis Current Visit: Yes Status: Acute (9) Leukocytosis Current Visit: Yes Status: Acute (10) Severe protein-calorie malnutrition Current Visit: Yes Status: Chronic DVT Prophylaxis: On subcutaneous heparin - Summary of Assessment and Plan Summary of Assessment and Plan: Acute gastritis with underlying duodenal stenosis: Continue PPI. 9 for EGD tod ay. Will await results. Complicated UTI: Completed treatment for this. Chronic kidney disease stage III: Stable. At baseline. Creatinine 1.18 today. Stop IV fluids Coronary artery disease: Continue aspirin, Plavix and statin. Essential hypertension: Continue carvedilol and amlodipine. Blood pressure remains elevated. Will increase carvedilol dosage. Moderate risk for complications. - Time Spent with Patient Total time spent is greater than 50% in coordination of care (as documented) at patient's floor/unit and/or counseling patient: Internal Medicine: Result - Labs CBC & Chem 7: 11/28/18 06:17 11/28/18 06:17 Labs: Short CBC 11/28/18 Range/Units 06:17 WBC 7.5 (4.3-11.1) K/mcL Hgb 8.4 L (11.5-15.4) g/dL Hct 27.0 L (35.3-44.9) % Plt Count 164 (140-400) K/mcL Neutrophils # 5.4 (1.6-8.9) K/mcL BMP 11/28/18 06:17 Sodium 139 Potassium 3.5 Chloride 106 Carbon Dioxide 25 BUN 28 H Creatinine 1.18 Glucose 89 Calcium 8.0 L Consult Discharge Plan - Plan Referrals: Bi Christianson DO [Primary Care Provider] - (1) Gastritis Qualifiers: Gastritis type: other gastritis Chronicity: acute Gastritis bleeding: without bleeding Qualified Code(s): K29.00 - Acute gastritis without bleeding (3) Abdominal pain Qualifiers: Abdominal location: epigastric Qualified Code(s): R10.13 - Epigastric pain (4) Hypertension Qualifiers: Hypertension type: unspecified Qualified Code(s): I10 - Essential (primary) hypertension (5) Chronic kidney disease Qualifiers: Chronic kidney disease stage: stage 3 (moderate) Qualified Code(s): N18.3 - Chronic kidney disease, stage 3 (moderate) (6) UTI (urinary tract infection) Qualifiers: Urinary tract infection type: acute cystitis Hematuria presence: with hematuria Qualified Code(s): N30.01 - Acute cystitis with hematuria (7) Coronary artery disease Qualifiers: Qualified Code(s): I25.10 - Atherosclerotic heart disease of [place] coronary artery without angina pectoris (9) Leukocytosis Qualifiers: Qualified Code(s): D72.829 - Elevated white blood cell count, unspecified
[2018-11-28] MEDS ORDERED: *HR* Propofol 200 MG/20 ML VIAL IVP ONE (13:58)
[2018-11-28] MEDS ORDERED: 0.9 % Sodium Chloride 1,000 ML IVC SCH (14:30)
[2018-11-28] MEDS: 0.9 % Sodium Chloride 500 ML IVC SCH (14:33)
[2018-11-28] MEDS: traMADol 50 MG TABLET PO PRN (16:52)
[2018-11-29] MEDS: traMADol 50 MG TABLET PO PRN ×3 (03:57→15:39)
[2018-11-29] MEDS: *HR* Heparin 5,000 UNIT/ML VIAL SQ SCH ×2 (05:45→17:27)
[2018-11-29 06:26] LABS: Basophils % 0.4 %; Eosinophils # 0.4 K/mcL (0.0-0.6); Eosinophils % 4.9 %; Hematocrit 28.1 % (35.3-44.9); Hemoglobin 8.9 g/dL (11.5-15.4); Immature Granulocytes % 0.4 % (0-4); Lymphocytes % 13.2 %; Mean Corpuscular HGB Conc 31.7 g/dL (31.6-35.5); Mean Corpuscular Hemoglobin 28.4 pg (28.0-33.3); Mean Corpuscular Volume 89.8 fL (83.0-100.0); Mean Platelet Volume 11.5 fL (9.4-12.4); Monocytes # 0.6 K/mcL (0.0-1.3); Monocytes % 7.5 %; Neutrophils # 5.5 K/mcL (1.6-8.9); Platelet Count 188 K/mcL (140-400); Red Blood Count 3.13 M/mcL (3.82-4.97); Red Cell Distribution Width 17.2 % (11.5-14.5); Segmented Neutrophils % 73.6 %; White Blood Count 7.5 K/mcL (4.3-11.1)
[2018-11-29 06:46] LABS: Calcium 8.5 mg/dL (8.6-10.3); Magnesium 1.8 mg/dL (1.6-2.6); Phosphorous 2.9 mg/dL (2.7-4.5); Potassium 3.7 mEq/L (3.5-5.1)
[2018-11-29] MEDS: amLODIPine 5 MG TABLET PO SCH (09:25)
[2018-11-29] MEDS: Pantoprazole 40 MG VIAL IVP SCH (09:25)
[2018-11-29] MEDS: Isosorbide MONOnitrate (24 HR) 30 MG TAB.ER.24H PO SCH (09:25)
[2018-11-29] MEDS: Aspirin Enteric Coated 81 MG Tablet PO SCH (09:25)
[2018-11-29] MEDS: Cholecalciferol (D-3) 1,000 UNIT TABLET PO SCH (09:30)
[2018-11-29] MEDS: 0.9 % Sodium Chloride 500 ML IVC SCH ×2 (09:38→15:38)
--- NOTE | 2018-11-29 14:15 | Discharge Summary ---
- NOTES TO OUTPATIENT PROVIDER Notes to Outpatient Provider: Patient with a history of chronic kidney disease stage III, kidney stones who recently underwent right-sided ureteral stent placement, coronary artery disease who was hospitalized here after coming to the ER with complaints of nausea and vomiting and inability to keep anything down. She had also been having abdominal pain. She was found to have acute kidney injury and was treated with IV fluids. GI was then consulted and patient underwent upper GI endoscopy. She was found to have gastritis with extensive gastric fluid. The duodenum was unable to be intubated. Patient was suspected of having duodenal stenosis. She was evaluated for this with small bowel follow-through study which confirmed internal stenosis and she had a significantly slow transit time. Upper GI endoscopy was reattempted yesterday and patient was found to have esophageal ulcers, gastritis and acquired duodenal stenosis. Gastroenterology recommends that the patient be transferred to tertiary care Center to undergo either duodenal stent placement or bypass surgery. Patient is on Plavix and this will need to be held prior to surgery. She did have a drug-eluting stent placed in May 2018 and will need very minimal interruption of get antiplatelet therapy perioperatively. Orders not resulted at time of discharge: Pending orders 11/26/18 08:39 Culture,Blood [BC] Routine 11/28/18 15:15 Surgical Pathology [PTH] Routine Date of Encounter: 11/29/18 Time of Encounter: 14:11 - Discharge Diagnosis (1) Duodenal stenosis Priority: Primary Status: Acute (2) Gastritis Priority: Secondary Status: Acute Qualifiers: Gastritis type: other gastritis Chronicity: acute Gastritis bleeding: without bleeding Qualified Code(s): K29.00 - Acute gastritis without bleeding (3) Abdominal pain Priority: Secondary Status: Acute Qualifiers: Abdominal location: epigastric Qualified Code(s): R10.13 - Epigastric pain (4) Hypertension Priority: Secondary Status: Chronic Qualifiers: Hypertension type: unspecified Qualified Code(s): I10 - Essential (primary) hypertension (5) Chronic kidney disease Priority: Secondary Status: Acute Qualifiers: Chronic kidney disease stage: stage 3 (moderate) Qualified Code(s): N18.3 - Chronic kidney disease, stage 3 (moderate) (6) UTI (urinary tract infection) Priority: Secondary Status: Acute Qualifiers: Urinary tract infection type: acute cystitis Hematuria presence: with hematuria Qualified Code(s): N30.01 - Acute cystitis with hematuria (7) Coronary artery disease Priority: Secondary Status: Acute Qualifiers: Qualified Code(s): I25.10 - Atherosclerotic heart disease of [place] coronary artery without angina pectoris (8) DVT prophylaxis Priority: Secondary Status: Acute (9) Leukocytosis Priority: Secondary Status: Resolved Qualifiers: Qualified Code(s): D72.829 - Elevated white blood cell count, unspecified (10) Severe protein-calorie malnutrition Priority: Secondary Status: Chronic Hospital course: Ms. Dee is a 87 year old female Patient with a history of chronic kidney disease stage III, kidney stones who recently underwent right-sided ureteral stent placement, coronary artery disease who was hospitalized here after coming to the ER with complaints of nausea and vomiting and inability to keep anything down. She had also been having abdominal pain. She was found to have acute kidney injury and was treated with IV fluids. GI was then consulted and patient underwent upper GI endoscopy. She was found to have gastritis with extensive gastric fluid. The duodenum was unable to be intubated. Patient was suspected of having duodenal stenosis. She was evaluated for this with small bowel follow-through study which confirmed internal stenosis and she had a significantly slow transit time. Upper GI endoscopy was reattempted yesterday and patient was found to have esophageal ulcers, gastritis and acquired duodenal stenosis. Gastroenterology recommends that the patient be transferred to tertiary care Center to undergo either duodenal stent placement or bypass surgery. Patient is on Plavix and this will need to be held prior to surgery. She did have a drug-eluting stent placed in May 2018 and will need very minimal interruption of get antiplatelet therapy perioperatively. Discharge discussed with: patient, work and family life consultant - Time Spent with Patient Total time spent providing and/or coordinating discharge services: Time spent: Greater than 30 minutes (40 min) - Discharge Medications Prescriptions: Continued Cholecalciferol (Vitamin D3) [Vitamin D3] 2,000 units PO DAILY Pantoprazole Sodium [Protonix] 40 mg PO DAILY Oxybutynin [Ditropan] 5 mg PO BID Meclizine HCl [Verticalm] 25 mg PO TID PRN PRN Reason: Vertigo Isosorbide MONOnitrate [Isosorbide Mononitrate ER] 30 mg PO DAILY Duloxetine HCl [Cymbalta] 60 mg PO DAILY Clopidogrel Bisulfate [Plavix] 75 mg PO DAILY Carvedilol 12.5 mg PO BID Atorvastatin [Lipitor] 40 mg PO QPM Aspirin [Adult Aspirin] 81 mg PO DAILY Allopurinol [Zyloprim 100 MG] 100 mg PO DAILY Magnesium Oxide [Magnesium] 400 mg PO BID Home Medications: Allopurinol [Zyloprim 100 MG] 100 mg PO DAILY 11/15/18 [History] Aspirin [Adult Aspirin] 81 mg PO DAILY 11/15/18 [History] Atorvastatin [Lipitor] 40 mg PO QPM 11/15/18 [History] Carvedilol 12.5 mg PO BID 11/15/18 [History] Cholecalciferol (Vitamin D3) [Vitamin D3] 2,000 units PO DAILY 11/15/18 [History] Clopidogrel Bisulfate [Plavix] 75 mg PO DAILY 11/15/18 [History] Duloxetine HCl [Cymbalta] 60 mg PO DAILY 11/15/18 [History] Isosorbide MONOnitrate [Isosorbide Mononitrate ER] 30 mg PO DAILY 11/15/18 [History] Meclizine HCl [Verticalm] 25 mg PO TID PRN 11/15/18 [History] Oxybutynin [Ditropan] 5 mg PO BID 11/15/18 [History] Pantoprazole Sodium [Protonix] 40 mg PO DAILY 11/15/18 [History] Magnesium Oxide [Magnesium] 400 mg PO BID 11/18/18 [History] Allergies/Adverse Reactions: Allergy/AdvReac Type Severity Reaction Status Date / Time baclofen Allergy Hives Verified 11/15/18 23:26 ciprofloxacin [From Cipro] Allergy Hives Verified 11/15/18 23:26 clindamycin Allergy Hives Verified 11/15/18 23:26 morphine Allergy Hives Verified 11/15/18 23:26 Penicillins [PCN] Allergy Hives Verified 11/15/18 23:26 Sulfa (Sulfonamide Allergy Hives Verified 11/15/18 23:26 Antibiotics) topiramate [From Topamax] Allergy Hives Verified 11/15/18 23:26 Date of admission: 11/22/18 18:29 Primary care physician: Bi Christianson DO Consults: 11/22/18 18:00 Consult to Urology [CONS] Routine Consulting Provider: [facility] [place] Reason for Consult: hydronephrosis Call Completed: No 11/22/18 19:36 Consult to Nutrition [CONS] Routine Comment: Consulting Provider: NUTRITION Reason for Dietary Consult: MST Score 11/23/18 14:52 Consult to Gastroenterology [CONS] Routine Consulting Provider: Gastroenterology [facility] Reason for Consult: intractable nausea and vomiting with hiatal hernia Call Completed: No 11/24/18 18:53 Consult to Invasive Line Access Team [CONS] Routine Reason for Consult: limited IV access Line Type: EPIV 11/26/18 15:32 Consult to Physical Therapy [CONS] Routine Comment: Evaluate, develop and implement POC Reason for Consult: deconditioning; increased weakness Does patient have active BEDREST order?: No Is patient medically & hemodynamically stable?: Yes Patient assessed for mobility or mobilized this visit?: No 11/26/18 15:33 Consult to Occupational Therapy [CONS] Routine Comment: Evaluate, develop and implement POC Reason for Consult: deconditioning; increased weakness Does patient have active BEDREST order?: No Is patient medically & hemodynamically stable?: Yes Patient assessed for mobility or mobilized this visit?: No Discharging clinician: Peggy Mosqueda Anticipated date of discharge: 11/29/18 - Constitutional Vitals: Temp Pulse Resp BP Pulse Ox 98.5 F 79 16 141/56 96 11/29/18 12:31 11/29/18 12:31 11/29/18 12:31 11/29/18 12:31 11/29/18 12:31 Exam: General: Patient is alert, no acute distress, oriented x 3 Respiratory: Good respiratory effort. Normal breath sounds. No wheezing or crackles. Cardiovascular: Regular rate and rhythm. s1 and s2 normal No clicks, rubs, gallops, or murmurs. No pedal edema Abdomen: Abdomen is soft, nontender. Bowel sounds are present Musculoskeletal: Spontaneously moving all extremities Skin: warm, dry, intact. Neuro: Alert oriented x 3 normal cranial nerves, no focal deficits - Patient Status Disposition: Transfer Other Condition: Good Overall status at discharge: patient is not back to baseline - Discharge Instructions Follow Up With: Bi Christianson DO [Primary Care Provider] - - Diet and Activity Diet: other
[2018-11-29 15:18] VITALS: BP 141/59
[2018-11-29] MEDS: Acetaminophen 325 MG TABLET PO PRN (20:48)
== END 2018-11-29 21:19 | disposition critical access hospital (66) | DRG 380 ==
LOC: 3ANU 15:33 → EMEROOARM 15:33 → SUATTDRO 18:29 → 3ANU 19:04
PROVIDERS: ADMIT Internal Medicine Nephrology; ATTEND Internal Medicine